=== PATIENT | male | born 1955 | race Caucasian/White ===

== ENCOUNTER → 2016-07-20 | Outpatient (CLI) | payer BC ==
--- NOTE | 2016-07-20 15:15 | US ---
EXAMINATION TYPE: US venous doppler duplex LE RT DATE OF EXAM: 07/20/2016 3:02 PM COMPARISON: NONE CLINICAL HISTORY: M79.669 Pain in lower right leg. SIDE PERFORMED: Right TECHNIQUE: The lower extremity deep venous system is examined utilizing real time linear array sonog felipe with graded compression, doppler sonography and color-flow sonography. VESSELS IMAGED: External Iliac Vein (EIV) Common Femoral Vein Deep Femoral Vein Greater Saphenous Vein * Femoral Vein Popliteal Vein Proximal Calf Veins (* superficial vessels) Right Leg: Positive for DVT. There is thrombus seen from prox pop vein through ptv's in the calf. Th e vessel has minimal flow and is non compressible. No popliteal fossa lesion is seen. IMPRESSION: THIS EXAMINATION IS POSITIVE FOR DVT EXTENDING FROM THE PROXIMAL POPLITEAL VEIN INTO THE PROXIMAL XOCHITL F VEINS.
== END ==
LOC: RADUSWWP 14:24
PROVIDERS: ATTEND Family Medicine
DX: I82.431 Acute embolism and thrombosis of right popliteal vein (principal)

== ENCOUNTER 2016-07-23 17:22 | Emergency (ER) | payer BC ==
[2016-07-23] MEDS ORDERED: ACETAMINOPHEN TAB 325 MG TAB PO STA (18:25)
[2016-07-23 18:44] LABS: Basophils # (A) 0.1 k/uL (0-0.2); Basophils % (A) 1 %; CH 30.7; CHCM 34.6; Eosinophils # (A) 0.1 k/uL (0-0.7); Eosinophils % (A) 2 %; HCT 45.6 % (39.0-53.0); HDW 2.73; HGB 15.4 gm/dL (13.0-17.5); Luc % (Auto) 1; Lymphocytes # (A) 1.4 k/uL (1.0-4.8); Lymphocytes % (A) 18 %; MCH 30.2 pg (25.0-35.0); MCHC 33.9 g/dL (31.0-37.0); MCV 89.2 fL (80.0-100.0); Mean Platelet Volume 6.9; Monocytes # (A) 0.5 k/uL (0-1.0); Monocytes % (A) 7 %; Neutrophils # (A) 5.4 k/uL (1.3-7.7); Neutrophils % (A) 71 %; RBC 5.11 m/uL (4.30-5.90); WBC 7.6 k/uL (3.8-10.6); WBC (Perox) 7.97
[2016-07-23 18:54] LABS: Anion Gap 11 mmol/L; Blood Urea Nitrogen 16 mg/dL (9-20); Calcium 9.3 mg/dL (8.4-10.2); Carbon Dioxide 25 mmol/L (22-30); Chloride 104 mmol/L (98-107); Glucose 87 mg/dL (74-99); Non-African American GFR(MDRD) >60 (>60 ml/min/1.73 sqM); Potassium 4.1 mmol/L (3.5-5.1); Sodium 140 mmol/L (137-145)
--- NOTE | 2016-07-23 18:55 | ED ---
General Adult HPI - General Chief complaint: Headache Stated complaint: headache,poss blood clot Time Seen by Provider: 07/23/16 18:03 Source: patient, family, RN notes reviewed Mode of arrival: ambulatory Limitations: no limitations - History of Present Illness Initial comments: 60-year-old male presenting for headache. Patient states the symptoms began about 3 days ago and are gradually worsening. States the headaches are intermittent and feels like they're present on the top of his head and frontal area. He does not have a history of recurrent headaches. Does state that he was diagnosed with a DVT this previous Saturday and started on Xarelto at that time. He also states over the past 2-3 days he's had development of a sore throat and feels at times like he is having difficulty swallowing. He has also been having intermittent chest pains over the past 3 days. He is also feeling associated fatigue. - Related Data Home Medications Medication Instructions Recorded Confirmed Rivaroxaban [Xarelto] 15 mg PO BID 07/23/16 07/23/16 Allergies Allergy/AdvReac Type Severity Reaction Status Date / Time No Known Allergies Allergy Verified 07/23/16 18:03 Review of Systems ROS Statement: Those systems with pertinent positive or pertinent negative responses have been documented in the HPI. ROS Other: All systems not noted in ROS Statement are negative. Past Medical History Past Medical History: Cancer Additional Past Medical History / Comment(s): hx skin cancer 2003, DVT 2016 History of Any Multi-Drug Resistant Organisms: None Reported Past Surgical History: Back Surgery, Cholecystectomy, Orthopedic Surgery Additional Past Surgical History / Comment(s): skin ca. removed 2003. RIGHT SHOULDER SURGERY 02/03/14. Past Anesthesia/Blood Transfusion Reactions: No Reported Reaction Past Psychological History: No Psychological Hx Reported Smoking Status: Never smoker Past Alcohol Use History: None Reported Past Drug Use History: None Reported - Past Family History Mother Family Medical History: Cancer Sister(s) Family Medical History: Cancer, Deep Vein Thrombosis (DVT) Brother(s) Family Medical History: Cancer, Deep Vein Thrombosis (DVT) General Exam - General Exam Comments Initial Comments: General: Awake and Alert. No acute distress. Does not appear acutely ill. Eyes: WILIAM, EOM intact. No nystagmus. No scleral icterus. HENT: Atraumatic, normocephalic. Mucous membranes moist. Trachea midline. Neck: The neck is supple, there is no tenderness or JVD. Cardiovascular: Regular rate and rhythm. No murmur, rub, or gallop is appreciated. Distal pulses intact. Respiratory: Lungs are clear to auscultation bilaterally. No wheezes, rales, rhonchi. No respiratory distress. Gastrointestinal: Soft, Nontender. No rebound or guarding. Non-distended. No masses or organomegaly noted. No CVA tenderness. Musculoskeletal: No tenderness. Normal ROM. No gross deformity. No strength deficits. Neurological: A&Ox3. CN II-XII grossly intact, There are no obvious motor or sensory deficits. Coordination appears grossly intact. Speech is normal. Skin: Skin is warm and dry and no rashes or lesions are noted. Psychiatric: Cooperative, appropriate mood & affect, normal judgment. Limitations: no limitations Course Vital Signs 07/23/16 07/23/16 07/23/16 17:51 18:33 21:27 Temperature 98.0 F Pulse Rate 68 62 69 Respiratory 20 16 18 Rate Blood Pressure 130/86 124/83 112/74 O2 Sat by Pulse 95 93 L 97 Oximetry EKG Findings - EKG Comments: EKG Findings:: EKG 18:55. Sinus rhythm. Rate 58. NH 202. QRS 98. QT/QTc 434 /426. Normal axis. No STEMI. Nonspecific EKG. Medical Decision Making - Medical Decision Making 60-year-old male presenting for multiple symptoms including headache and chest pain. Patient denies any active chest pain at this time. Physical exam is unremarkable without focal neurological deficits. His gait is normal and intact. Sinus headache is mild. He is given Tylenol for headache. Lab workup ordered. CT head and neck without acute process. Lab work is grossly unremarkable. On reevaluation patient states he is feeling improved. Updated patient and on results and imaging. Discussed concern for overall symptoms but reassuring workup today. Discussed lower suspicion for meningitis of severe intracranial process at this time. Patient was offered lumbar puncture but declines at this time. I believe this is appropriate given that he is feeling improved after medications. Discussed uncertain etiology of his symptoms at this time. Discussed his intermittent chest pain. Heart score is 2, low risk for acute cardiac event. Discussed benefit of further cardiac evaluation in the outpatient setting. Offered admission for further evaluation versus outpatient treatment. Patient would prefer further outpatient follow-up. Discussed continuing symptomatically management with [id number] medications. Discussed close follow-up with PCP. Discussed this could be possible side effects of his Xarelto. Discussed concerning signs symptoms for immediate return to the ED. Patient and are agreeable to plan a discharge home. - Lab Data Result diagrams: 07/23/16 18:35 07/23/16 18:35 Lab Results 07/23/16 07/23/16 07/23/16 Range/Units 18:35 18:35 18:35 WBC 7.6 (3.8-10.6) k/uL RBC 5.11 (4.30-5.90) m/uL Hgb 15.4 (13.0-17.5) gm/dL Hct 45.6 (39.0-53.0) % MCV 89.2 (80.0-100.0) fL MCH 30.2 (25.0-35.0) pg MCHC 33.9 (31.0-37.0) g/dL RDW 14.0 (11.5-15.5) % Plt Count 228 (150-450) k/uL Neutrophils % 71 % Lymphocytes % 18 % Monocytes % 7 % Eosinophils % 2 % Basophils % 1 % Neutrophils # 5.4 (1.3-7.7) k/uL Lymphocytes # 1.4 (1.0-4.8) k/uL Monocytes # 0.5 (0-1.0) k/uL Eosinophils # 0.1 (0-0.7) k/uL Basophils # 0.1 (0-0.2) k/uL PT 10.3 (9.0-12.0) sec INR 1.0 (<1.1) APTT 25.1 (22.0-30.0) sec Sodium 140 (137-145) mmol/L Potassium 4.1 (3.5-5.1) mmol/L Chloride 104 (98-107) mmol/L Carbon Dioxide 25 (22-30) mmol/L Anion Gap 11 mmol/L BUN 16 (9-20) mg/dL Creatinine 0.95 (0.66-1.25) mg/dL Est GFR (MDRD) Af Amer >60 (>60 ml/min/1.73 sqM) Est GFR (MDRD) Non-Af >60 (>60 ml/min/1.73 sqM) Glucose 87 (74-99) mg/dL Calcium 9.3 (8.4-10.2) mg/dL Troponin I (0.000-0.034) ng/mL 07/23/16 Range/Units 18:35 WBC (3.8-10.6) k/uL RBC (4.30-5.90) m/uL Hgb (13.0-17.5) gm/dL Hct (39.0-53.0) % MCV (80.0-100.0) fL MCH (25.0-35.0) pg MCHC (31.0-37.0) g/dL RDW (11.5-15.5) % Plt Count (150-450) k/uL Neutrophils % % Lymphocytes % % Monocytes % % Eosinophils % % Basophils % % Neutrophils # (1.3-7.7) k/uL Lymphocytes # (1.0-4.8) k/uL Monocytes # (0-1.0) k/uL Eosinophils # (0-0.7) k/uL Basophils # (0-0.2) k/uL PT (9.0-12.0) sec INR (<1.1) APTT (22.0-30.0) sec Sodium (137-145) mmol/L Potassium (3.5-5.1) mmol/L Chloride (98-107) mmol/L Carbon Dioxide (22-30) mmol/L Anion Gap mmol/L BUN (9-20) mg/dL Creatinine (0.66-1.25) mg/dL Est GFR (MDRD) Af Amer (>60 ml/min/1.73 sqM) Est GFR (MDRD) Non-Af (>60 ml/min/1.73 sqM) Glucose (74-99) mg/dL Calcium (8.4-10.2) mg/dL Troponin I <0.012 (0.000-0.034) ng/mL - EKG Data -: EKG Interpreted by Mo EKG shows normal: sinus rhythm Rate: normal - Radiology Data Radiology results: report reviewed, image reviewed Disposition Clinical Impression: Nonintractable headache, Nonspecific chest pain Disposition: HOME SELF-CARE Condition: Stable Instructions: Acute Headache (ED), Chest Pain (ED) Additional Instructions: You may take Tylenol for headache or pain Please follow up with your primary doctor for reevaluation and further cardiac workup. Please discuss outpatient stress testing. Referrals: Irma Otto III, MD [Primary Care Provider] - 1-2 days Time of Disposition: 21:14
[2016-07-23 18:58] LABS: Partial Thromboplastin Time 25.1 sec (22.0-30.0); Prothrombin Time 10.3 sec (9.0-12.0)
--- NOTE | 2016-07-23 19:25 | CT ---
EXAMINATION TYPE: CT brain jerod wo con DATE OF EXAM: 07/23/2016 7:13 PM COMPARISON: NONE HISTORY: Headache with neck pain. No known injury CT DLP: 1528.2 mGycm Automated exposure control for dose reduction was used. TECHNIQUE: CT scan of the head and cervical spine are performed without contrast. FINDINGS: There is cerebral cortical atrophy. There is no mass effect nor midline shift. There is n o sign of intracranial hemorrhage. The calvarium is intact. The cervical vertebra have normal alignment. There is mild narrowing at C5-6 C6-7 disc spaces with sp urring. Facet joints are intact. There is no evidence of a fracture. The skull base appears intact. IMPRESSION: Negative CT scan of the cervical spine. Mild spondylotic changes. Mild cerebral cortical atrophy. No acute intracranial abnormality.
[2016-07-23] MEDS ORDERED: diphenhydrAMINE 50 MG/ML 1 ML VIAL IVP STA (20:06)
[2016-07-23] MEDS ORDERED: PROMETHAZINE INJ 25 MG in SODIUM CHLORIDE 0.9% 50 ML IVPB STA (20:06)
[2016-07-23] MEDS ORDERED: KETOROLAC 30 MG/ML 1 ML VIAL IVP STA (20:06)
[2016-07-23 21:29] VITALS: BP 112/74; PULSE 69; RESP 18; TEMP 98
== END 2016-07-23 21:29 | disposition home or self-care (01) ==
LOC: EC 17:22
DX: R51 Headache (principal); R07.9 Chest pain, unspecified; R53.83 Other fatigue; Z85.828 Personal history of other malignant neoplasm of skin; Z79.899 Other long term (current) drug therapy
CPT/HCPCS: 36415; 93005; 80048; 84484; 85025; 85610; 85730; 72125; 70450; 99284; 96365; 96375 ×2; J1200; J2550; J1885

== ENCOUNTER 2017-07-23 13:40 | Emergency (ER) | payer BC ==
[2017-07-23] MEDS ORDERED: SODIUM CHLORIDE 0.9% 1,000 ML IV STA (14:10)
--- NOTE | 2017-07-23 14:36 | ED ---
General Adult HPI - General Chief complaint: Abdominal Pain Stated complaint: abd pain Time Seen by Provider: 07/23/17 14:00 Source: patient, RN notes reviewed Mode of arrival: ambulatory Limitations: no limitations - History of Present Illness Initial comments: Patient 61-year-old male presenting to the emergency room today with chief complaint of abdominal pain left lower quadrant and bloody bowel movements. Patient states that he's had some dull pain over the last few months and has seen blood in the stool at times over the last month and a half. He states he did go to the family doctor advised come here to the emergency room further evaluation CAT scan of his abdomen. Patient states critical thoughts times does not need any pain medication. States the bowel movements have been dark and bright colors both on the paper and in the toilet. Patient states never had similar symptoms in the past. He denies any other complaints or symptoms at this time. Patient denies any recent fever, chills, shortness of breath, chest pain, nausea or vomiting, numbness or tingling, dysuria or hematuria, constipation, headaches or visual changes, or any other complaints. - Related Data Previous Rx's Medication Instructions Recorded Dicyclomine [Bentyl] 20 mg PO QID #20 tablet 07/23/17 Omeprazole 20 mg PO DAILY #20 capsule. 07/23/17 Allergies Allergy/AdvReac Type Severity Reaction Status Date / Time No Known Allergies Allergy Verified 07/23/17 14:33 Review of Systems ROS Statement: Those systems with pertinent positive or pertinent negative responses have been documented in the HPI. ROS Other: All systems not noted in ROS Statement are negative. Past Medical History Past Medical History: Cancer Additional Past Medical History / Comment(s): hx skin cancer 2003, DVT 2016 History of Any Multi-Drug Resistant Organisms: None Reported Past Surgical History: Back Surgery, Cholecystectomy, Orthopedic Surgery Additional Past Surgical History / Comment(s): skin ca. removed 2003. RIGHT SHOULDER SURGERY 02/03/14. Past Anesthesia/Blood Transfusion Reactions: No Reported Reaction Past Psychological History: No Psychological Hx Reported Smoking Status: Never smoker Past Alcohol Use History: None Reported Past Drug Use History: None Reported - Past Family History Mother Family Medical History: Cancer Sister(s) Family Medical History: Cancer, Deep Vein Thrombosis (DVT) Brother(s) Family Medical History: Cancer, Deep Vein Thrombosis (DVT) General Exam - General Exam Comments Initial Comments: General: The patient is awake and alert, in no distress, and does not appear acutely ill. Eye: Pupils are equal, round and reactive to light, extra-ocular movements are intact. No nystagmus. There is normal conjunctiva bilaterally. No signs of icterus. Ears, nose, mouth and throat: There are moist mucous membranes and no oral lesions. Neck: The neck is supple, there is no tenderness or JVD. Cardiovascular: There is a regular rate and rhythm. No murmur, rub or gallop is appreciated. Respiratory: Lungs are clear to auscultation, respirations are non-labored, breath sounds are equal. No wheezes, stridor, rales, or rhonchi. Gastrointestinal: Abdomen soft on palpation. Patient does have tenderness to left lower quadrant. No rebound tenderness. No guarding. Musculoskeletal: Normal ROM, no tenderness. Strength 5/5. Sensation intact. Pulses equal bilaterally 2+. Neurological: A&O x 3. CN II-XII intact, There are no obvious motor or sensory deficits. Coordination appears grossly intact. Speech is normal. Skin: Skin is warm and dry and no rashes or lesions are noted. Psychiatric: Cooperative, appropriate mood & affect, normal judgment. : Normal rectal tone. No bright red blood per rectum. Limitations: no limitations Course Vital Signs 07/23/17 07/23/17 13:54 15:44 Temperature 97.6 F Pulse Rate 62 59 L Respiratory 18 16 Rate Blood Pressure 131/79 113/72 O2 Sat by Pulse 97 97 Oximetry Medical Decision Making - Medical Decision Making Patient reexamined at this time shows no signs of distress. Patient's labs been reviewed. Hemoglobin stable. Occult positive. Patient's CT of the abdomen shows enteritis. Results were discussed with the patient. At this time vitals are stable. Well. Patient states like to try to follow-up outpatient. Will be given information for GI and surgery advised FAMILY physician. Will be given omeprazole and Bentyl for symptoms. Advised return if any symptoms increase or worsen. - Lab Data Result diagrams: 07/23/17 14:25 07/23/17 14:25 Lab Results 07/23/17 07/23/17 07/23/17 Range/Units 14:25 14:25 14:25 WBC 7.0 (3.8-10.6) k/uL RBC 5.18 (4.30-5.90) m/uL Hgb 14.6 (13.0-17.5) gm/dL Hct 44.3 (39.0-53.0) % MCV 85.5 (80.0-100.0) fL MCH 28.1 (25.0-35.0) pg MCHC 32.9 (31.0-37.0) g/dL RDW 13.8 (11.5-15.5) % Plt Count 261 (150-450) k/uL Neutrophils % 75 % Lymphocytes % 16 % Monocytes % 6 % Eosinophils % 1 % Basophils % 1 % Neutrophils # 5.3 (1.3-7.7) k/uL Lymphocytes # 1.2 (1.0-4.8) k/uL Monocytes # 0.4 (0-1.0) k/uL Eosinophils # 0.1 (0-0.7) k/uL Basophils # 0.1 (0-0.2) k/uL PT (9.0-12.0) sec INR (<1.2) APTT (22.0-30.0) sec Sodium 144 (137-145) mmol/L Potassium 4.7 (3.5-5.1) mmol/L Chloride 106 (98-107) mmol/L Carbon Dioxide 23 (22-30) mmol/L Anion Gap 15 mmol/L BUN 18 (9-20) mg/dL Creatinine 0.97 (0.66-1.25) mg/dL Est GFR (CKD-EPI)AfAm >90 (>60 ml/min/1.73 sqM) Est GFR (CKD-EPI)NonAf 85 (>60 ml/min/1.73 sqM) Glucose 84 (74-99) mg/dL Plasma Lactic Acid Ranjith 0.8 (0.7-2.0) mmol/L Calcium 9.4 (8.4-10.2) mg/dL Total Bilirubin 0.8 (0.2-1.3) mg/dL AST 58 (17-59) U/L ALT 51 (21-72) U/L Alkaline Phosphatase 39 (38-126) U/L Total Protein 7.5 (6.3-8.2) g/dL Albumin 4.4 (3.5-5.0) g/dL Stool Occult Blood (Negative) 07/23/17 07/23/17 Range/Units 14:25 14:25 WBC (3.8-10.6) k/uL RBC (4.30-5.90) m/uL Hgb (13.0-17.5) gm/dL Hct (39.0-53.0) % MCV (80.0-100.0) fL MCH (25.0-35.0) pg MCHC (31.0-37.0) g/dL RDW (11.5-15.5) % Plt Count (150-450) k/uL Neutrophils % % Lymphocytes % % Monocytes % % Eosinophils % % Basophils % % Neutrophils # (1.3-7.7) k/uL Lymphocytes # (1.0-4.8) k/uL Monocytes # (0-1.0) k/uL Eosinophils # (0-0.7) k/uL Basophils # (0-0.2) k/uL PT 10.5 (9.0-12.0) sec INR 1.1 (<1.2) APTT 21.3 L (22.0-30.0) sec Sodium (137-145) mmol/L Potassium (3.5-5.1) mmol/L Chloride (98-107) mmol/L Carbon Dioxide (22-30) mmol/L Anion Gap mmol/L BUN (9-20) mg/dL Creatinine (0.66-1.25) mg/dL Est GFR (CKD-EPI)AfAm (>60 ml/min/1.73 sqM) Est GFR (CKD-EPI)NonAf (>60 ml/min/1.73 sqM) Glucose (74-99) mg/dL Plasma Lactic Acid Ranjith (0.7-2.0) mmol/L Calcium (8.4-10.2) mg/dL Total Bilirubin (0.2-1.3) mg/dL AST (17-59) U/L ALT (21-72) U/L Alkaline Phosphatase (38-126) U/L Total Protein (6.3-8.2) g/dL Albumin (3.5-5.0) g/dL Stool Occult Blood Positive (Negative) Disposition Clinical Impression: Blood in stool Disposition: HOME SELF-CARE Condition: Good Instructions: Gastrointestinal Bleeding (ED) Additional Instructions: Please use medication that was sent to your pharmacy as discussed. Please follow-up with family doctor in the next 2 days of symptoms have not improved. Please return to emergency room if the symptoms increase or worsen or for any other concerns. Prescriptions: Dicyclomine [Bentyl] 20 mg PO QID #20 tablet Omeprazole 20 mg PO DAILY #20 capsule.dr Is patient prescribed a controlled substance at discharge?: No Referrals: Irma Otto III, MD [Primary Care Provider] - 1-2 days Adán Scherer MD [STAFF PHYSICIAN] - 1-2 days Time of Disposition: 17:35
[2017-07-23 14:45] LABS: Basophils # (A) 0.1 k/uL (0-0.2); Basophils % (A) 1 %; Eosinophils # (A) 0.1 k/uL (0-0.7); Eosinophils % (A) 1 %; HCT 44.3 % (39.0-53.0); HGB 14.6 gm/dL (13.0-17.5); Lymphocytes # (A) 1.2 k/uL (1.0-4.8); Lymphocytes % (A) 16 %; MCH 28.1 pg (25.0-35.0); MCHC 32.9 g/dL (31.0-37.0); MCV 85.5 fL (80.0-100.0); Mean Platelet Volume 7.1; Monocytes # (A) 0.4 k/uL (0-1.0); Monocytes % (A) 6 %; Neutrophils # (A) 5.3 k/uL (1.3-7.7); Neutrophils % (A) 75 %; Platelet Count 261 k/uL (150-450); RBC 5.18 m/uL (4.30-5.90); RDW 13.8 % (11.5-15.5)
[2017-07-23 15:00] LABS: ALT 51 U/L (21-72); AST 58 U/L (17-59); Albumin 4.4 g/dL (3.5-5.0); Alkaline Phosphatase 39 U/L (38-126); Anion Gap 15 mmol/L; Blood Urea Nitrogen 18 mg/dL (9-20); Calcium 9.4 mg/dL (8.4-10.2); Carbon Dioxide 23 mmol/L (22-30); Chloride 106 mmol/L (98-107); Glucose 84 mg/dL (74-99); Potassium 4.7 mmol/L (3.5-5.1); Sodium 144 mmol/L (137-145); Total Bilirubin 0.8 mg/dL (0.2-1.3); Total Protein 7.5 g/dL (6.3-8.2)
[2017-07-23 15:04] LABS: INR 1.1 (<1.2); Prothrombin Time 10.5 sec (9.0-12.0)
[2017-07-23 15:09] LABS: Partial Thromboplastin Time 21.3 sec (22.0-30.0)
[2017-07-23] MEDS ORDERED: RX INFO: IV CONTRAST WAS GIVEN 1 EACH MISC MISCELLANE PRN (15:27)
[2017-07-23 15:44] VITALS: RESP 16
[2017-07-23] MEDS ORDERED: MORPHINE SULFATE 4MG/4ML SYRG IVP STA (15:45)
--- NOTE | 2017-07-23 17:09 | CT ---
EXAMINATION TYPE: CT abdomen pelvis w con DATE OF EXAM: 07/23/2017 COMPARISON: NONE HISTORY: Left lower quadrant pain and bloody stools x [address] DLP: 1450.2 mGycm Automated exposure control for dose reduction was used. TECHNIQUE: Helical acquisition of images from the lung bases through the pelvis have been completed. CONTRAST: Performed without Oral Contrast and with IV Contrast, patient injected with 100 mL of Isovue M300. FINDINGS: LUNG BASES: No significant abnormality is appreciated. AORTA: No significant abnormality is appreciated. LIVER/GB: Multiple cystic foci are scattered within the liver, largest within the left lobe measures 3.4 cm. Patient is post cholecystectomy.. PANCREAS: No significant abnormality is seen. SPLEEN: No significant abnormality is seen. ADRENALS: No significant abnormality is seen. KIDNEYS: No significant abnormality is seen. REPRODUCTIVE ORGANS: No significant abnormality is seen BOWEL: Fluid-filled loops of small bowel are present. The appendix is normal. Small umbilical hernia contains fat. Colon is not distended distally, difficult to exclude a mucosal lesion. FREE AIR: No Free Air visible. ASCITES: None visible. PELVIC ADENOPATHY: None visualized. RETROPERITONEAL ADENOPATHY: No Retroperitoneal Adenopathy visible. URINARY BLADDER: No significant abnormality is seen. OSSEOUS STRUCTURES: Postop changes are noted status post unilateral posterior fusion at L3-L5. Shamar ectomy present at L4 and L3. IMPRESSION: FINDINGS COMPATIBLE WITH ENTERITIS. FOLLOW-UP INDICATED.
[2017-07-23 17:54] VITALS: BP 109/70; PULSE 58; TEMP 98
== END 2017-07-23 17:45 | disposition home or self-care (01) ==
LOC: EC 13:40
DX: K92.1 Melena (principal); R10.32 Left lower quadrant pain; Z90.49 Acquired absence of other specified parts of digestive tract; Z85.828 Personal history of other malignant neoplasm of skin
CPT/HCPCS: 36415; 80053; 83605; 85025; 85610; 85730; 82272; 87040; 74177; 99284; Q9967; J2270

== ENCOUNTER 2017-08-08 11:31 | Day surgery (SDC) | payer BC ==
[2017-08-05 15:46] VITALS: BMI 28.2
[~2017-08-08 11:31] MED LIST: LACTATED RINGERS 1,000 ML IV SCH
[2017-08-08] MEDS ORDERED: LIDOCAINE 1% 20 ML VIAL (10MG/ML) FOR IV START INTRADERMA ONE (11:57)
[2017-08-08 12:00] VITALS: TEMP 97.9
[2017-08-08] MEDS ORDERED: PROPOFOL 10 MG/ML 20 ML VIAL IV ONE (13:32)
[2017-08-08] MEDS ORDERED: LIDOCAINE 1% INJ 10MG/ML (20 ML MDV) ONE (13:32)
[2017-08-08 14:13] VITALS: RESP 18
--- NOTE | 2017-08-08 14:16 | P.PCN ---
Date of Procedure: 08/08/17 Procedure(s) Performed: Procedure: Total colonoscopy. Preoperative diagnosis: Rectal bleeding. Postoperative diagnosis: Posterior anal fissure not bleeding at the time of this exam, otherwise, exam to the cecum within normal limits. Preparation: HalfLytely prep. Sedation: Was provided by anesthesia. Brief clinical history: The patient is a 61-year-old male who has been experiencing intermittent rectal bleeding over the last 2 months or so. He has been having rectal pain as well. The patient had no prior colonoscopy. He has no other abdominal symptoms or change in bowel habits. No family history of colon cancer or inflammatory bowel disease. Procedure: With the patient on his left lateral decubitus position and after informed consent and adequate sedation, the perianal area was inspected and it showed a posterior anal fissure with evidence of slight fresh bleeding. There were no fistulas. There were no masses felt on digital rectal examination. The Olympus CFQ 160L video colonoscope was then inserted in the rectum in the usual fashion and advanced to the cecum. The mucosa appeared healthy. No polyps or tumors were seen or any obvious diverticular disease or other pathology. I retroflexed the endoscope in the rectum before the endoscope was withdrawn. The patient tolerated the procedure well. Plan: The patient was reassured. Discussed dietary measures and local care of his fissure. Further plans can be made based on his course. He will follow up with you as planned.
[2017-08-08 14:33] VITALS: BP 110/74; PULSE 61
== END 2017-08-08 14:47 | disposition home or self-care (01) ==
LOC: ORWHC2ENDO 11:31
DX: K60.2 Anal fissure, unspecified (principal); Z86.718 Personal history of other venous thrombosis and embolism; K62.5 Hemorrhage of anus and rectum; Z79.1 Long term (current) use of non-steroidal anti-inflammatories (NSAID)
CPT/HCPCS: 45378; J2001; J2704

== ENCOUNTER → 2017-10-31 | Outpatient (CLI) | payer BC ==
--- NOTE | 2017-10-31 09:38 | FL ---
EXAMINATION TYPE: FL small bowel follow through DATE OF EXAM: 10/31/2017 CLINICAL HISTORY: Lower abd pain, bloody stools, constipation and diarrhea. TECHNIQUE: A single contrast small bowel follow through is performed utilizing barium. 32sec fluor o time was 8 fluoroscopic images saved. COMPARISON: None FINDINGS: Thread Laster image of the abdomen demonstrates a moderate amount retained colonic stool. No dilat ed large or small bowel. There is also a levoscoliotic curvature, moderate multilevel degenerative ch kayla, and postsurgical changes of the and thoracolumbar spine. Cholecystectomy clips are noted within the right upper quadrant. The small bowel study shows normal transit to the colon in less than 20 minutes. This is indicative o f decreased transit time. There is a normal mucosal fold pattern throughout the small bowel. There i s no evidence of any stricture or filling defect noted. The terminal ileum is spotted and appears un remarkable. IMPRESSION: 1. Abnormal motility of the small bowel with decreased transit time. This finding is nonspecific and can be seen in enteritis and diarrhea. 2. No evidence of stricture or abnormal morphology of the terminal ileum. There is a normal small bow el mucosal fold pattern. At there is further concern for acute inflammatory process CT enterography o r MRI enterography could be performed.
== END | disposition home or self-care (01) ==
LOC: RADFLMAIN 07:48
DX: R93.3 Abnormal findings on diagnostic imaging of other parts of digestive tract (principal); R19.4 Change in bowel habit
CPT/HCPCS: 74250

== ENCOUNTER → 2018-01-14 | Outpatient (CLI) | payer BC ==
[~2018-01-14] MED LIST changes: +COSYNTROPIN 0.25 MG VIAL IVP ONE; -LACTATED RINGERS 1,000 ML IV SCH
[2018-01-14 08:54] VITALS: BP 120/76; PULSE 53; RESP 16; TEMP 97.6
[2018-01-14 09:58] LABS: PSA Annual Screen 1.46 ng/mL (0.00-4.00)
== END | disposition home or self-care (01) ==
LOC: PROCWHC3 08:10
PROVIDERS: ATTEND Family Medicine
DX: Z00.01 Encounter for general adult medical examination with abnormal findings (principal); E87.5 Hyperkalemia; Z12.5 Encounter for screening for malignant neoplasm of prostate
CPT/HCPCS: 80061; 82533; 82024; 96374; G0103; J0834

== ENCOUNTER → 2018-04-14 | Outpatient (CLI) | payer BC ==
[~2018-04-14] MED LIST changes: +SODIUM CHLORIDE 0.9% 500 ML 500 ML in EMPTY BAG 1 BAG IV PRN
[2018-04-14 10:15] VITALS: BP 129/84; PULSE 58; RESP 18; TEMP 97.4
[2018-04-14 12:19] LABS: Albumin 4.4 g/dL (3.5-5.0); Calcium 9.4 mg/dL (8.4-10.2); Total Bilirubin 0.6 mg/dL (0.2-1.3); Total Protein 7.3 g/dL (6.3-8.2)
== END | disposition home or self-care (01) ==
LOC: PROCWHC3 09:49
PROVIDERS: ATTEND Internal Medicine
DX: E27.40 Unspecified adrenocortical insufficiency (principal)
CPT/HCPCS: 80053; 82533; 82024; 96374; J0834

== ENCOUNTER 2018-06-29 06:17 | Observation (INO) | payer BC ==
[2018-06-29 06:52] LABS: Basophils # (A) 0.1 k/uL (0-0.2); Basophils % (A) 0 %; Eosinophils # (A) 0.2 k/uL (0-0.7); Eosinophils % (A) 1 %; HCT 49.8 % (39.0-53.0); Lymphocytes # (A) 1.1 k/uL (1.0-4.8); Lymphocytes % (A) 8 %; MCH 28.4 pg (25.0-35.0); MCHC 32.1 g/dL (31.0-37.0); MCV 88.7 fL (80.0-100.0); Mean Platelet Volume 7.8; Monocytes # (A) 0.8 k/uL (0-1.0); Monocytes % (A) 6 %; Neutrophils # (A) 10.9 k/uL (1.3-7.7); Neutrophils % (A) 83 %; Platelet Count 164 k/uL (150-450); RBC 5.61 m/uL (4.30-5.90); RDW 13.7 % (11.5-15.5); WBC 13.2 k/uL (3.8-10.6)
[2018-06-29 06:59] LABS: Partial Thromboplastin Time 23.4 sec (22.0-30.0); Prothrombin Time 10.5 sec (9.0-12.0)
[2018-06-29 07:02] LABS: Albumin 4.3 g/dL (3.5-5.0); Calcium 9.6 mg/dL (8.4-10.2); Potassium 4.7 mmol/L (3.5-5.1); Total Bilirubin 1.3 mg/dL (0.2-1.3); Total Protein 7.2 g/dL (6.3-8.2)
[2018-06-29] MEDS ORDERED: MORPHINE SULFATE 4 MG/ML SYRINGE IVP STA (07:03)
--- NOTE | 2018-06-29 07:03 | ED ---
Abdominal Pain HPI <Benson Yang - Last Filed: 06/29/18 08:32> - General Source: patient Mode of arrival: wheelchair Limitations: no limitations <Funmilayo Sands - Last Filed: 06/30/18 01:50> - General Chief Complaint: Abdominal Pain Stated Complaint: SOB/Abdominal Pain Time Seen by Provider: 06/29/18 06:31 - History of Present Illness Initial Comments: Please a 62-year-old male with a history of chronic abdominal pain for which he is followed closely by gastroenterology he presents today for evaluation of right-sided upper flank and lower lung pain. Reports the pain began approximately 2 days ago but was very mild he reports this morning he woke up and he had a sudden onset of severe worsening of his pain he became diaphoretic lightheaded reports that his vision went black and he laid himself on the ground. He believes he did lose consciousness. His reports that she found him laying on the ground that he was pale and sweaty and that they had to drive the hospital with the windows down due to him being so sweaty. Patient reports he's never spends anything like this in the past. Patient reports his pain is primarily in the right side. He reports that pain is worse with deep inspiration he feels like he can't catch a deep breath. He doesn't have any palpitations or exertional chest pain. Patient does have a history of lower extremity DVTs which they believe were provoked by a long distance travel. He reports he was on anticoagulation until March 2018 at which time his anticoagulation was discontinued. (Funmilayo Sands) - Related Data Home Medications Medication Instructions Recorded Confirmed Ibuprofen [Motrin Ib] 400 mg PO Q6H PRN 06/29/18 06/29/18 Allergies Allergy/AdvReac Type Severity Reaction Status Date / Time No Known Allergies Allergy Verified 06/29/18 07:53 Review of Systems ROS Other: All systems not noted in ROS Statement are negative. <Benson Yang - Last Filed: 06/29/18 08:32> ROS Other: All systems not noted in ROS Statement are negative. <Funmilayo Sands - Last Filed: 06/30/18 01:50> ROS Statement: Those systems with pertinent positive or pertinent negative responses have been documented in the HPI. Past Medical History Past Medical History: Cancer Additional Past Medical History / Comment(s): hx skin cancer 2003, DVT right leg 2016 (states he was on xarelto - last dose was Mar , states last ultrasound showed clot still there., 4 back surgeries with Chronic back pain., states having abd pain and rectal bleeding for 2 months. History of Any Multi-Drug Resistant Organisms: None Reported Past Surgical History: Back Surgery, Cholecystectomy, Orthopedic Surgery, Tonsillectomy Additional Past Surgical History / Comment(s): SKIN CANCER, . RIGHT SHOULDER SURGERY x2, BILATERAL KNEE ARTHROSCOPY. Past Anesthesia/Blood Transfusion Reactions: No Reported Reaction Past Psychological History: No Psychological Hx Reported Smoking Status: Never smoker - Past Family History Father Family Medical History: Cancer Additional Family Medical History / Comment(s): PROSTATE CANCER Mother Family Medical History: Cancer Additional Family Medical History / Comment(s): OVARIAN CANCER Sister(s) Family Medical History: Cancer, Deep Vein Thrombosis (DVT) Additional Family Medical History / Comment(s): OVARIAN CANCER, BREAST CANCER Brother(s) Family Medical History: Cancer, Deep Vein Thrombosis (DVT), Pulmonary Embolus Additional Family Medical History / Comment(s): LEUKEMIA <Funmilayo Sands P - Last Filed: 06/30/18 01:50> General Exam Limitations: no limitations <Funmilayo Sands P - Last Filed: 06/30/18 01:50> - General Exam Comments Initial Comments: Physical Exam GENERAL: Patient is well-developed and well-nourished. Patient is nontoxic and well- hydrated and is in no distress. HENT: Normocephalic, Atraumatic. EYES: PERRL, EOMI PULMONARY: Unlabored respirations. No audible rales rhonchi or wheezing was noted. CARDIOVASCULAR: There is a regular rate and rhythm without any murmurs gallops or rubs. DP and PT pulses are present and equal bilaterally All extremities are warm and well perfused ABDOMEN: Soft and nontender with normal bowel sounds. Pulsatile mass SKIN: Skin is clear with no lesions or rashes and otherwise unremarkable. Diaphoretic : Deferred NEUROLOGIC: Patient is alert and oriented x3. Moving all extremities spontaneously MUSCULOSKELETAL: Normal extremities with adequate strength and full range of motion. No lower extremity swelling or edema. No calf tenderness. PSYCHIATRIC: Normal psychiatric evaluation. Limitations: no limitations (Funmilayo Sands) Course Vital Signs 06/29/18 06/29/18 06/29/18 06:19 07:30 08:53 Temperature 97.8 F Pulse Rate 67 63 65 Respiratory 20 18 18 Rate Blood Pressure 112/73 108/73 104/85 O2 Sat by Pulse 95 96 96 Oximetry 06/29/18 09:47 Temperature 98.3 F Pulse Rate 66 Respiratory 18 Rate Blood Pressure 103/73 O2 Sat by Pulse 98 Oximetry Medical Decision Making - Lab Data Result diagrams: 06/29/18 06:31 06/29/18 06:31 <Benson Yang - Last Filed: 06/29/18 08:32> - Lab Data Result diagrams: 06/29/18 06:31 06/29/18 06:31 - EKG Data -: EKG Interpreted by Me <Funmilayo Sands - Last Filed: 06/30/18 01:50> - Medical Decision Making Patient care was signed out to me by previous shift physician, Dr. Sands. Briefly, patient is a 60-year-old male with history of chronic abdominal pain. He's been having pleuritic right-sided chest pain and right-sided abdominal pain. Patient had a leukocytosis of 13.2, rest of laboratory evaluation was unremarkable. Plan at sign out was to follow-up with CT imaging to determine appropriate disposition. CT showed acute appendicitis. Patient was reevaluated at bedside. Abdominal exam was suggestive of rebound tenderness, Rovsing sign. Clinical presentation and imaging studies are consistent with acute appendicitis . Patient be admitted to general surgery. Started on Zosyn. Patient case discussed with Dr. villa who is willing to accept admission. (Benson Yang) Patient was seen and evaluated immediately on arrival Patient is diaphoretic and appears uncomfortable however. Unknown etiology of this pain. Patient reports he's had mild pain for a couple of days but is having significant worsening with diaphoresis and syncope today Given the patient's history there is concern for pulmonary embolism versus dissection Labs and imaging were ordered Labs with mild leukocytosis (Funmilayo Sands) - Lab Data Lab Results 06/29/18 06/29/18 06/29/18 Range/Units 06:31 06:31 06:31 WBC 13.2 H (3.8-10.6) k/uL RBC 5.61 (4.30-5.90) m/uL Hgb 16.0 (13.0-17.5) gm/dL Hct 49.8 (39.0-53.0) % MCV 88.7 (80.0-100.0) fL MCH 28.4 (25.0-35.0) pg MCHC 32.1 (31.0-37.0) g/dL RDW 13.7 (11.5-15.5) % Plt Count 164 (150-450) k/uL Neutrophils % 83 % Lymphocytes % 8 % Monocytes % 6 % Eosinophils % 1 % Basophils % 0 % Neutrophils # 10.9 H (1.3-7.7) k/uL Lymphocytes # 1.1 (1.0-4.8) k/uL Monocytes # 0.8 (0-1.0) k/uL Eosinophils # 0.2 (0-0.7) k/uL Basophils # 0.1 (0-0.2) k/uL PT 10.5 (9.0-12.0) sec INR 1.0 (<1.2) APTT 23.4 (22.0-30.0) sec Sodium 140 (137-145) mmol/L Potassium 4.7 (3.5-5.1) mmol/L Chloride 109 H (98-107) mmol/L Carbon Dioxide 22 (22-30) mmol/L Anion Gap 9 mmol/L BUN 15 (9-20) mg/dL Creatinine 1.04 (0.66-1.25) mg/dL Est GFR (CKD-EPI)AfAm 89 (>60 ml/min/1.73 sqM) Est GFR (CKD-EPI)NonAf 77 (>60 ml/min/1.73 sqM) Glucose 103 H (74-99) mg/dL Calcium 9.6 (8.4-10.2) mg/dL Total Bilirubin 1.3 (0.2-1.3) mg/dL AST 44 (17-59) U/L ALT 29 (21-72) U/L Alkaline Phosphatase 45 (38-126) U/L Troponin I (0.000-0.034) ng/mL Total Protein 7.2 (6.3-8.2) g/dL Albumin 4.3 (3.5-5.0) g/dL Amylase 45 (30-110) U/L Lipase 93 (23-300) U/L 06/29/18 Range/Units 06:31 WBC (3.8-10.6) k/uL RBC (4.30-5.90) m/uL Hgb (13.0-17.5) gm/dL Hct (39.0-53.0) % MCV (80.0-100.0) fL MCH (25.0-35.0) pg MCHC (31.0-37.0) g/dL RDW (11.5-15.5) % Plt Count (150-450) k/uL Neutrophils % % Lymphocytes % % Monocytes % % Eosinophils % % Basophils % % Neutrophils # (1.3-7.7) k/uL Lymphocytes # (1.0-4.8) k/uL Monocytes # (0-1.0) k/uL Eosinophils # (0-0.7) k/uL Basophils # (0-0.2) k/uL PT (9.0-12.0) sec INR (<1.2) APTT (22.0-30.0) sec Sodium (137-145) mmol/L Potassium (3.5-5.1) mmol/L Chloride (98-107) mmol/L Carbon Dioxide (22-30) mmol/L Anion Gap mmol/L BUN (9-20) mg/dL Creatinine (0.66-1.25) mg/dL Est GFR (CKD-EPI)AfAm (>60 ml/min/1.73 sqM) Est GFR (CKD-EPI)NonAf (>60 ml/min/1.73 sqM) Glucose (74-99) mg/dL Calcium (8.4-10.2) mg/dL Total Bilirubin (0.2-1.3) mg/dL AST (17-59) U/L ALT (21-72) U/L Alkaline Phosphatase (38-126) U/L Troponin I <0.012 (0.000-0.034) ng/mL Total Protein (6.3-8.2) g/dL Albumin (3.5-5.0) g/dL Amylase (30-110) U/L Lipase (23-300) U/L - EKG Data EKG Comments: EKG obtained 6:51 AM, rate is 67 rhythm is sinus there is a normal axis and normal intervals, there are no acute ST elevations or depressions no evidence of acute ischemia or infarction. (Funmilayo Sands) Disposition <Benson Yang - Last Filed: 06/29/18 08:32> Is patient prescribed a controlled substance at d/c from ED?: No <Funmilayo Sands - Last Filed: 06/30/18 01:50> Clinical Impression: Acute appendicitis Disposition: ADMITTED IP TO THIS HOSP Condition: Stable
--- NOTE | 2018-06-29 08:01 | CT ---
EXAMINATION TYPE: CT angio thor/abd pel aorta DATE OF EXAM: 06/29/2018 COMPARISON: 07/23/2017 HISTORY: 62-year-old male pain, syncope, diaphoresis, Pain, SOB TECHNIQUE: Contiguous axial scanning of the chest, abdomen, and pelvis performed without and with IV Contrast, patient injected with 100 mL of Isovue 370. Coronal/sagittal MIP reconstructions performed. 3-D reconstructions generated on a dedicated independent workstation. CT DLP: 1956.2 mGycm Automated exposure control for dose reduction was used. FINDINGS: Chest: Heart normal size without pericardial effusion. Some scattered prominent but nonenlarged mediastinal and hilar lymph nodes. Small calcified mediastin al lymph nodes suggest prior granulomatous disease. Mild dependent atelectasis in the lungs. Calcifie d granuloma posterior left upper lung. 6 mm smaller nodularity anterior right mid to lower lung. Approximately 5 nodules clustered adjacent to each other are present. Small emphysematous cyst right base. Strandy atelectasis or scarring at the left base. No consolidati on or pleural effusion. Multiple hepatic cysts redemonstrated, largest anterior liver lobe measuring 3.6 cm. Tiny hernia. Cholecystectomy clips. Adrenal glands, kidneys, spleen with tiny hilar splenule, and pancreas appear within normal limits. No dilated small bowel, free fluid, or free air. Small fatty periumbilical hernia measuring 2.1 cm wide. The hernia neck measures 6 mm wide. No mesenteric or retroperitoneal lymphadenopathy. Mild overall stone burden. Thickened, inflamed and fluid-filled appendix with a caliber of 1.2 cm right lower quadrant with mode rate surrounding inflammatory fat stranding. Pelvis: Bladder nondistended. Prostate gland measures 4.5 cm wide. No abnormal fluid collection in the pelvis or pelvic lymphadenopathy. Inguinal lymph nodes measure up to 1.1 cm short axis. Bones: Postsurgical changes of right-sided L3-L5 posterior lumbar fusion. Scattered fatty matrix hemangiomas in the spine. No osseous destructive process seen. VASCULATURE: Ascending aorta is ectatic and 3.8 cm No evidence for acute intramural hematoma and the noncontrast sequences. No evidence for aortic dissection. This convention arch vessel branching anatomy. In the abdomen, there there is an accessory left renal artery. No evidence for AAA. IMPRESSION: 1. EXAM POSITIVE FOR ACUTE APPENDICITIS WITH MODERATE SURROUNDING INFLAMMATION. NO ABSCESS OR FREE AI R. 2. NO EVIDENCE FOR AORTIC DISSECTION OR ACUTE AORTIC INJURY. ECTATIC ASCENDING AORTA AT 3.8 CM. 3. SMALL 2.1 CM FATTY LEFT PERIUMBILICAL HERNIA WITH A 6 MM HERNIA NECK. 4. A FEW 6 MM AND SMALLER PULMONARY NODULES. SIX-MONTH FOLLOW-UP CT CHEST RECOMMENDED TO REASSESS.
[2018-06-29] MEDS ORDERED: PIPERACILLIN-TAZOBACTAM 3.375 GM in SODIUM CHLORIDE 0.9% 100 ML IVPB STA (08:10)
--- NOTE | 2018-06-29 08:25 | XR ---
EXAMINATION TYPE: XR chest 2V DATE OF EXAM: 06/29/2018 COMPARISON: Correlation CT same day HISTORY: 62 year-old male right upper quadrant flank/lung pain, diaphoresis, near syncope TECHNIQUE: PA and lateral views FINDINGS: Heart normal size. Aorta within normal limits. Diffuse interstitial prominence has a chronic appearan ce. Some patchy left basilar opacity likely atelectasis/scarring when correlating with the CT same da y. No pleural effusion. IMPRESSION: Chronic appearing changes with some patchy left basilar opacity likely scarring or atelectasis when c orrelating to the CT performed same day. No definite acute cardiopulmonary process.
--- NOTE | 2018-06-29 08:35 | XR ---
EXAMINATION TYPE: XR KUB DATE OF EXAM: 06/29/2018 CLINICAL DATA: 62-year-old male abdominal pain, PHH COMPARISON: 10/31/2017 FINDINGS: Lung bases are clear. No evidence for free intraperitoneal air. Nonobstructive bowel gas pattern. Some small colonic air-fluid levels on the right side of the abdome n. Right-sided posterior fusion changes from L3 through L5 with levoconvex scoliosis. IV contrast seen within the renal collecting systems and bladder. IMPRESSION: No evidence for free air or bowel obstruction. Small colonic air-fluid levels on the right side of th e abdomen could represent a mild regional ileus. Note CT findings positive for acute appendicitis.
[2018-06-29] MEDS ORDERED: MORPHINE SULFATE 4 MG/ML SYRINGE IV PRN (08:36)
[2018-06-29] MEDS ORDERED: ONDANSETRON 4 MG/2 ML VIAL IVP PRN (08:36)
[2018-06-29] MEDS ORDERED: NALOXONE 0.4 MG/ML 1 ML VIAL IV PRN ×2 (08:36→11:57)
[2018-06-29] MEDS ORDERED: ACETAMINOPHEN TAB 325 MG TAB PO PRN (08:36)
[2018-06-29] MEDS: SODIUM CHLORIDE 0.9% 1,000 ML IV SCH ×3 (08:48→23:07)
[2018-06-29 09:38] LABS: Appearance,Urine Clear (Clear); Bilirubin,Urine Negative (Negative); Blood,Urine Negative (Negative); Color,Urine Yellow; Glucose,Urine (UA) Negative (Negative); Ketones,Urine Negative (Negative); Leukocyte Esterase,Urine Negative (Negative); Nitrite,Urine Negative (Negative); Protein,Urine Negative (Negative); Urobilinogen,Urine <2.0 mg/dL (<2.0)
[2018-06-29 09:45] LABS: Glucose,Whole Blood 98 mg/dL (75-99)
[2018-06-29] MEDS ORDERED: DEXAMETHASONE SOD PHOS (MDV) 100 MG/10 ML VIAL ONE (10:10)
[2018-06-29] MEDS ORDERED: fentaNYL (PF) 50 MCG/ML 2 ML AMP ONE (10:10)
[2018-06-29] MEDS ORDERED: SUCCINYLCHOLINE CHLORIDE 100 MG/5 ML SYR IV ONE (10:10)
[2018-06-29] MEDS ORDERED: LIDOCAINE 1% INJ 10MG/ML (20 ML MDV) ONE (10:10)
[2018-06-29] MEDS ORDERED: MIDAZOLAM 2 MG/2 ML VIAL ONE (10:10)
[2018-06-29] MEDS ORDERED: ROCURONIUM BROMIDE 10 MG/ML 10 ML VIAL IV ONE (10:10)
[2018-06-29] MEDS ORDERED: ONDANSETRON 4 MG/2 ML VIAL ONE (10:10)
[2018-06-29] MEDS ORDERED: NEOSTIGMINE 1 MG/ML 10 ML VIAL ONE (10:10)
[2018-06-29] MEDS ORDERED: PROPOFOL 10 MG/ML 20 ML VIAL IV ONE (10:10)
[2018-06-29] MEDS ORDERED: HEPARIN SODIUM,PORCINE 5,000 UNIT/ML 1 ML VIAL ONE (10:10)
[2018-06-29] MEDS ORDERED: GLYCOPYRROLATE 0.2 MG/ML 2 ML VIAL ONE (10:10)
--- NOTE | 2018-06-29 10:17 | P.GSHP ---
History of Present Illness H&P Date: 06/29/18 62 year old male with 2 days abdominal pain that has been located in his RLQ. He denies any pain like this in the past. Past medical history significant for DVT and melanoma. He is no longer on anticoagulation. He has had cholecystectomy in the past. He denies Fever/chills. He has had normal BM. His last colonoscopy was a year ago and normal. Past Medical History Past Medical History: Cancer Additional Past Medical History / Comment(s): hx skin cancer 2003, DVT right leg 2016 (states he was on xarelto - last dose was Mar , states last ultrasound showed clot still there., 4 back surgeries with Chronic back pain., states having abd pain and rectal bleeding for 2 months. History of Any Multi-Drug Resistant Organisms: None Reported Past Surgical History: Back Surgery, Cholecystectomy, Orthopedic Surgery, Tonsillectomy Additional Past Surgical History / Comment(s): SKIN CANCER, . RIGHT SHOULDER SURGERY x2, BILATERAL KNEE ARTHROSCOPY. Past Anesthesia/Blood Transfusion Reactions: No Reported Reaction Past Psychological History: No Psychological Hx Reported Smoking Status: Never smoker - Past Family History Father Family Medical History: Cancer Additional Family Medical History / Comment(s): PROSTATE CANCER Mother Family Medical History: Cancer Additional Family Medical History / Comment(s): OVARIAN CANCER Sister(s) Family Medical History: Cancer, Deep Vein Thrombosis (DVT) Additional Family Medical History / Comment(s): OVARIAN CANCER, BREAST CANCER Brother(s) Family Medical History: Cancer, Deep Vein Thrombosis (DVT), Pulmonary Embolus Additional Family Medical History / Comment(s): LEUKEMIA Medications and Allergies Home Medications Medication Instructions Recorded Confirmed Type Ibuprofen [Motrin Ib] 400 mg PO Q6H PRN 06/29/18 06/29/18 History Allergies Allergy/AdvReac Type Severity Reaction Status Date / Time No Known Allergies Allergy Verified 06/29/18 07:53 Surgical - Exam Osteopathic Statement: *. No significant issues noted on an osteopathic structural exam other than those noted in the History and Physical/Consult. Vital Signs Temp Pulse Resp BP Pulse Ox 97.8 F 67 20 112/73 95 06/29/18 06:19 06/29/18 06:19 06/29/18 06:19 06/29/18 06:19 06/29/18 06:19 - General well developed, well nourished, no distress - Eyes PERRL - Neck trachea midline - Respiratory normal expansion, normal respiratory effort - Cardiovascular Rhythm: regular - Abdomen non distended, TTP in RLQ Abdomen: soft - Neurologic normal coordination, normal sensation - Psychiatric oriented to time, oriented to person, oriented to place Results - Labs 06/29/18 06:31 06/29/18 06:31 Abnormal Lab Results - Last 24 Hours (Table) 06/29/18 06/29/18 Range/Units 06:31 06:31 WBC 13.2 H (3.8-10.6) k/uL Neutrophils # 10.9 H (1.3-7.7) k/uL Chloride 109 H (98-107) mmol/L Glucose 103 H (74-99) mg/dL Diabetes panel 06/29/18 Range/Units 06:31 Sodium 140 (137-145) mmol/L Potassium 4.7 (3.5-5.1) mmol/L Chloride 109 H (98-107) mmol/L Carbon Dioxide 22 (22-30) mmol/L BUN 15 (9-20) mg/dL Creatinine 1.04 (0.66-1.25) mg/dL Glucose 103 H (74-99) mg/dL Calcium 9.6 (8.4-10.2) mg/dL AST 44 (17-59) U/L ALT 29 (21-72) U/L Alkaline Phosphatase 45 (38-126) U/L Total Protein 7.2 (6.3-8.2) g/dL Albumin 4.3 (3.5-5.0) g/dL Calcium panel 06/29/18 Range/Units 06:31 Calcium 9.6 (8.4-10.2) mg/dL Albumin 4.3 (3.5-5.0) g/dL Pituitary panel 06/29/18 Range/Units 06:31 Sodium 140 (137-145) mmol/L Potassium 4.7 (3.5-5.1) mmol/L Chloride 109 H (98-107) mmol/L Carbon Dioxide 22 (22-30) mmol/L BUN 15 (9-20) mg/dL Creatinine 1.04 (0.66-1.25) mg/dL Glucose 103 H (74-99) mg/dL Calcium 9.6 (8.4-10.2) mg/dL Adrenal panel 06/29/18 Range/Units 06:31 Sodium 140 (137-145) mmol/L Potassium 4.7 (3.5-5.1) mmol/L Chloride 109 H (98-107) mmol/L Carbon Dioxide 22 (22-30) mmol/L BUN 15 (9-20) mg/dL Creatinine 1.04 (0.66-1.25) mg/dL Glucose 103 H (74-99) mg/dL Calcium 9.6 (8.4-10.2) mg/dL Total Bilirubin 1.3 (0.2-1.3) mg/dL AST 44 (17-59) U/L ALT 29 (21-72) U/L Alkaline Phosphatase 45 (38-126) U/L Total Protein 7.2 (6.3-8.2) g/dL Albumin 4.3 (3.5-5.0) g/dL - Imaging CT scan - abdomen: report reviewed, image reviewed CT scan - pelvis: report reviewed, image reviewed Assessment and Plan Assessment: acute appendicitis Plan: IV abx, NPO, IVF, plan for lap appy possible open discussed with patient and family. They understood and agreed.
[2018-06-29] MEDS ORDERED: BUPIVACAIN-EPI 0.5%-1:200,000 30 ML VIAL SQ ONE ×2 (10:41)
[2018-06-29] MEDS ORDERED: SODIUM CHLORIDE 0.9% 600 ML IV ONE (10:41)
[2018-06-29] MEDS ORDERED: LACTATED RINGERS 1,000 ML IV ONE ×2 (11:06→11:57)
[2018-06-29 11:48] VITALS: RESP 16
--- NOTE | 2018-06-29 12:06 | P.OP ---
Date of Procedure: 06/29/18 Preoperative Diagnosis: Acute appendicitis Postoperative Diagnosis: Same Procedure(s) Performed: Laparoscopic Appendectomy Anesthesia: RIPA Surgeon: Celso Raymundo Estimated Blood Loss (ml): 5 Condition: stable Disposition: PACU Indications for Procedure: 62-year-old male presented with signs and symptoms consistent with acute appendicitis seems described risk benefits and alternatives to laparoscopic appendectomy couldn't risks of bleeding infection damage shunting tissue need further operation and need to convert to open patient stated he understood agreed and consented Description of Procedure: Patient's primary operative suite remained supine position underwent general endotracheal anesthesia per Department of anesthesia he was prepped and draped in usual sterile fashion timeout was performed correct patient correct procedure correct site was verified. A 3 cm incision was made inferior to the umbilicus carried down to the incisional hernia from his previous cholecystectomy. Fascia was cleared around the hernia was noted to be approximately 1 cm. The hernia was reduced and the 11 mm port was placed through the defect. The abdomen was insufflated and no injuries were noted. A 5 mm port was placed in the left midabdomen and a 5 mm port was placed suprapubic both under direct visualization. The patient was placed in steep Trendelenburg with the right side up and the base the appendix visualized at the base of the cecum. There was acute inflammation noted. The appendix was in the retrocecal position. The cecum and ascending colon were taken down along the white line of Toldt and retracted medially. The tip of the appendix was visualized and the mesial appendix was taken down using LigaSure device. The base of the appendix was stapled across at the base of the cecum using a 45 mm purple load Endo MIGUEL stapler. The appendix was removed in Endo Catch bag. The area was irrigated and suctioned and hemostasis was noted. The umbilical hernia site was then closed with 0 Vicryl in an interrupted fashion with 8 of a Jorge-Leighton suture passer. The abdomen was desufflated and ports removed under direct visualization hemostasis was noted skin was closed using 4-0 subcuticular Vicryl sutures followed by skin glue patient tolerated the procedure well there are no apparent complications
[2018-06-29 12:25] LABS: Specific Gravity,Urine 1.049 (1.001-1.035)
[2018-06-29] MEDS: PIPERACILLIN-TAZOBACTAM 3.375 GM in SODIUM CHLORIDE 0.9% 100 ML IVPB SCH ×2 (15:43→23:07)
[2018-06-29] MEDS: HEPARIN SODIUM,PORCINE 5,000 UNIT/ML 1 ML VIAL SQ SCH ×2 (15:43→23:07)
[2018-06-29] MEDS: HYDROcodone/APAP 5-325MG 1 EACH TAB PO PRN ×2 (18:10→23:07)
[2018-06-30 07:40] VITALS: BP 97/58; PULSE 52; TEMP 97.9
[2018-06-30] MEDS: HEPARIN SODIUM,PORCINE 5,000 UNIT/ML 1 ML VIAL SQ SCH (09:59)
[2018-06-30] MEDS: SODIUM CHLORIDE 0.9% 1,000 ML IV SCH (12:37)
--- NOTE | 2018-06-30 14:05 | US ---
EXAMINATION TYPE: US venous doppler duplex LE RT DATE OF EXAM: 06/30/2018 1:29 PM COMPARISON: 07/20/2016 CLINICAL HISTORY: history of clot. Patient states history of DVT right popliteal vein SIDE PERFORMED: right TECHNIQUE: The lower extremity deep venous system is examined utilizing real time linear array sonog felipe with graded compression, doppler sonography and color-flow sonography. VESSELS IMAGED: External Iliac Vein (EIV) Common Femoral Vein Deep Femoral Vein Greater Saphenous Vein * Femoral Vein Popliteal Vein Small Saphenous Vein * Proximal Calf Veins (* superficial vessels) Grayscale, color doppler, spectral doppler imaging performed of the deep veins of the right lower ext remity. Right Leg: Positive for Non-occluding DVT right distal popliteal vein IMPRESSION: Positive deep venous thrombosis of the right popliteal vein. This appears incompletely oc clusive, eccentric in location and at the same location as the prior of 07/20/2016 therefore favored t o be chronic.
--- NOTE | 2018-07-03 07:53 | P.DS ---
Providers Date of admission: 06/29/18 08:45 Attending physician: Celso Raymundo DO Primary care physician: Irma Cox [place] [facility] Course: Patient was admitted after uncomplicated lap appy for observation. The following day he was doing well, abdominal pain improved, tolerating diet. He has history of RLE DVT and was complaining of some RLQ pain with no swelling. RLE US showed chronic DVT with no change, he was instructed to follow up with Dr. Maurice who he follows with for his DVT. He was dicharged home in stable condition with insructions to also follow up with me and his PCP Patient Condition at Discharge: Stable Plan - Discharge Summary Discharge Rx Participant: Yes New Discharge Prescriptions: New Docusate [Colace] 100 mg PO DAILY #10 capsule Hydrocodone/Acetaminophen [Jefferson 5-325] 1 tab PO Q6HR PRN 3 Days #12 tab PRN Reason: Pain No Action Ibuprofen [Motrin Ib] 400 mg PO Q6H PRN PRN Reason: Pain Discharge Medication List Ibuprofen [Motrin Ib] 400 mg PO Q6H PRN 06/29/18 [History] Docusate [Colace] 100 mg PO DAILY #10 capsule 06/30/18 [Rx] Hydrocodone/Acetaminophen [Jefferson 5-325] 1 tab PO Q6HR PRN 3 Days #12 tab 06/30/18 [Rx] Follow up Appointment(s)/Referral(s): Celso Raymundo DO [Doctor of Osteopathic Medicine] - 07/07/18 3:15 pm Na Rg NPC [Nurse Practitioner] - 07/02/18 10:30 am Ugo Maurice DO [Doctor of Osteopathic Medicine] - 1 Week (Office is closed please call for follow up on DVT) Patient Instructions/Handouts: Laparoscopic Appendectomy (DC) Discharge Disposition: HOME SELF-CARE
== END 2018-06-30 15:26 | disposition home or self-care (01) ==
LOC: EC 06:17 → 4SSUR 08:45
PROVIDERS: ADMIT Student in an Organized Health Care Education/Training Program; ATTEND Student in an Organized Health Care Education/Training Program
DX: K35.80 Unspecified acute appendicitis (principal); G89.29 Other chronic pain; M54.9 Dorsalgia, unspecified; R07.81 Pleurodynia; R61 Generalized hyperhidrosis; R42 Dizziness and giddiness; Z90.49 Acquired absence of other specified parts of digestive tract; Z86.718 Personal history of other venous thrombosis and embolism; Z85.820 Personal history of malignant melanoma of skin; Z80.42 Family history of malignant neoplasm of prostate; Z80.3 Family history of malignant neoplasm of breast; Z80.6 Family history of leukemia; Z80.41 Family history of malignant neoplasm of ovary
CPT/HCPCS: 44970; 99285; 36415; 88304; 80053; 82150; 83690; 84484; 85025; 85610; 85730; 81003; 87040; 71046; 74018; 93971; 71275; 74174; G0378 ×2; J2543; J2250; J2270; J1644 ×2; J2710; J2405; J2001; J3010; J1100; J0330; J2704; Q9967

== ENCOUNTER 2019-03-12 18:51 | Emergency (ER) | payer BC ==
[2019-03-12] MEDS ORDERED: SODIUM CHLORIDE 0.9% 1,000 ML IV STA ×2 (19:02)
[2019-03-12] MEDS ORDERED: IPRATROPIUM-ALBUTEROL 3 ML NEB INHALATION STA (19:02)
--- NOTE | 2019-03-12 19:03 | ED ---
SOB HPI - General Chief Complaint: Shortness of Breath Stated Complaint: SOB, blood clot history Time Seen by Provider: 03/12/19 19:02 Source: patient, RN notes reviewed, old records reviewed Mode of arrival: ambulatory Limitations: no limitations - History of Present Illness Initial Comments: This is a 63-year-old male here for evaluation patient was admitted for exertional dyspnea. No history of heart disease nonsmoker has history of DVT thinks he may have a blood clot in his lungs. Patient symptoms are just regular fluids versus [place] for quite some time. No fevers no cough or congestion no recent travel history or sick contacts. Please prior DVT was related to prolonged travel MD Complaint: shortness of breath (Only with exertion) -: week(s) Severity: mild Severity scale (1-10): 3 Consistency: intermittent, now resolved Improves With: rest Worsens With: exertion Known History Of: other (None) Context: other (None) Associated Symptoms: chest pain (Occasional pain) - Related Data Home Medications Medication Instructions Recorded Confirmed Ibuprofen [Motrin Ib] 400 mg PO Q6H PRN 06/29/18 06/29/18 Previous Rx's Medication Instructions Recorded Docusate [Colace] 100 mg PO DAILY #10 capsule 06/30/18 Hydrocodone/Acetaminophen [[place] 1 tab PO Q6HR PRN 3 Days #12 tab 06/30/18 5-325] Allergies Allergy/AdvReac Type Severity Reaction Status Date / Time No Known Allergies Allergy Verified 03/12/19 18:57 Review of Systems ROS Statement: Those systems with pertinent positive or pertinent negative responses have been documented in the HPI. ROS Other: All systems not noted in ROS Statement are negative. Past Medical History Past Medical History: Cancer Additional Past Medical History / Comment(s): hx skin cancer 2003, DVT right leg 2016 (states he was on xarelto - last dose was Mar , states last ultrasound showed clot still there., 4 back surgeries with Chronic back pain., states having abd pain and rectal bleeding for 2 months. History of Any Multi-Drug Resistant Organisms: None Reported Past Surgical History: Appendectomy, Back Surgery, Cholecystectomy, Orthopedic Surgery, Tonsillectomy Additional Past Surgical History / Comment(s): SKIN CANCER, . RIGHT SHOULDER SURGERY x2, BILATERAL KNEE ARTHROSCOPY. Past Anesthesia/Blood Transfusion Reactions: No Reported Reaction Past Psychological History: No Psychological Hx Reported Smoking Status: Never smoker Past Alcohol Use History: None Reported Past Drug Use History: None Reported - Past Family History Father Family Medical History: Cancer Additional Family Medical History / Comment(s): PROSTATE CANCER Mother Family Medical History: Cancer Additional Family Medical History / Comment(s): OVARIAN CANCER Sister(s) Family Medical History: Cancer, Deep Vein Thrombosis (DVT) Additional Family Medical History / Comment(s): OVARIAN CANCER, BREAST CANCER Brother(s) Family Medical History: Cancer, Deep Vein Thrombosis (DVT), Pulmonary Embolus Additional Family Medical History / Comment(s): LEUKEMIA General Exam Limitations: no limitations General appearance: alert, in no apparent distress Head exam: Present: atraumatic, normocephalic, normal inspection Eye exam: Present: normal appearance, PERRL, EOMI. Absent: scleral icterus, conjunctival injection, periorbital swelling ENT exam: Present: normal exam, mucous membranes moist Neck exam: Present: normal inspection. Absent: tenderness, meningismus, lymphadenopathy Respiratory exam: Present: normal lung sounds bilaterally. Absent: respiratory distress, wheezes, rales, rhonchi, stridor Cardiovascular Exam: Present: regular rate, normal rhythm, normal heart sounds. Absent: systolic murmur, diastolic murmur, rubs, gallop, clicks GI/Abdominal exam: Present: soft, normal bowel sounds. Absent: distended, tenderness, guarding, rebound, rigid Extremities exam: Present: normal inspection, full ROM, normal capillary refill. Absent: tenderness, pedal edema, joint swelling, calf tenderness Back exam: Present: normal inspection Neurological exam: Present: alert, oriented X3, CN II-XII intact Psychiatric exam: Present: normal affect, normal mood Skin exam: Present: warm, dry, intact, normal color. Absent: rash Course Vital Signs 03/12/19 03/12/19 03/12/19 18:54 20:18 20:26 Temperature 97.7 F Pulse Rate 77 83 63 Respiratory 16 16 16 Rate Blood Pressure 132/82 O2 Sat by Pulse 99 Oximetry 03/12/19 20:44 Temperature Pulse Rate 68 Respiratory 18 Rate Blood Pressure 103/71 O2 Sat by Pulse 95 Oximetry - Reevaluation(s) Reevaluation #1: 03/12/19 21:10 medical records reviewed 03/12/19 21:11 Reevaluation #2: 03/12/19 21:11 no acute distress no shortness of breath no chest pain Medical Decision Making - Medical Decision Making 63 male date ER for evaluation with exertional dyspnea. CT negative for PE labwork otherwise unremarkable it is negative patient in no distress with no pain or shortness of currently and can be discharged home - Lab Data Result diagrams: 03/12/19 19:29 03/12/19 19:29 Lab Results 03/12/19 03/12/19 03/12/19 Range/Units 19:29 19:29 19:29 WBC 5.7 (3.8-10.6) k/uL RBC 4.85 (4.30-5.90) m/uL Hgb 14.2 (13.0-17.5) gm/dL Hct 42.3 (39.0-53.0) % MCV 87.3 (80.0-100.0) fL MCH 29.3 (25.0-35.0) pg MCHC 33.5 (31.0-37.0) g/dL RDW 13.3 (11.5-15.5) % Plt Count 181 (150-450) k/uL Neutrophils % 68 % Lymphocytes % 20 % Monocytes % 6 % Eosinophils % 3 % Basophils % 1 % Neutrophils # 3.9 (1.3-7.7) k/uL Lymphocytes # 1.2 (1.0-4.8) k/uL Monocytes # 0.3 (0-1.0) k/uL Eosinophils # 0.2 (0-0.7) k/uL Basophils # 0.1 (0-0.2) k/uL PT 9.9 (9.0-12.0) sec INR 0.9 (<1.2) APTT 24.6 (22.0-30.0) sec D-Dimer 0.39 (<0.60) mg/L FEU Sodium 140 (137-145) mmol/L Potassium 4.2 (3.5-5.1) mmol/L Chloride 111 H (98-107) mmol/L Carbon Dioxide 20 L (22-30) mmol/L Anion Gap 9 mmol/L BUN 22 H (9-20) mg/dL Creatinine 1.32 H (0.66-1.25) mg/dL Est GFR (CKD-EPI)AfAm 66 (>60 ml/min/1.73 sqM) Est GFR (CKD-EPI)NonAf 57 (>60 ml/min/1.73 sqM) Glucose 100 H (74-99) mg/dL Calcium 9.0 (8.4-10.2) mg/dL Magnesium 2.2 (1.6-2.3) mg/dL Total Bilirubin 0.6 (0.2-1.3) mg/dL AST 32 (17-59) U/L ALT 33 (21-72) U/L Alkaline Phosphatase 41 (38-126) U/L Troponin I (0.000-0.034) ng/mL NT-Pro-B Natriuret Pep pg/mL Total Protein 6.6 (6.3-8.2) g/dL Albumin 4.0 (3.5-5.0) g/dL 03/12/19 03/12/19 Range/Units 19:29 19:29 WBC (3.8-10.6) k/uL RBC (4.30-5.90) m/uL Hgb (13.0-17.5) gm/dL Hct (39.0-53.0) % MCV (80.0-100.0) fL MCH (25.0-35.0) pg MCHC (31.0-37.0) g/dL RDW (11.5-15.5) % Plt Count (150-450) k/uL Neutrophils % % Lymphocytes % % Monocytes % % Eosinophils % % Basophils % % Neutrophils # (1.3-7.7) k/uL Lymphocytes # (1.0-4.8) k/uL Monocytes # (0-1.0) k/uL Eosinophils # (0-0.7) k/uL Basophils # (0-0.2) k/uL PT (9.0-12.0) sec INR (<1.2) APTT (22.0-30.0) sec D-Dimer (<0.60) mg/L FEU Sodium (137-145) mmol/L Potassium (3.5-5.1) mmol/L Chloride (98-107) mmol/L Carbon Dioxide (22-30) mmol/L Anion Gap mmol/L BUN (9-20) mg/dL Creatinine (0.66-1.25) mg/dL Est GFR (CKD-EPI)AfAm (>60 ml/min/1.73 sqM) Est GFR (CKD-EPI)NonAf (>60 ml/min/1.73 sqM) Glucose (74-99) mg/dL Calcium (8.4-10.2) mg/dL Magnesium (1.6-2.3) mg/dL Total Bilirubin (0.2-1.3) mg/dL AST (17-59) U/L ALT (21-72) U/L Alkaline Phosphatase (38-126) U/L Troponin I <0.012 (0.000-0.034) ng/mL NT-Pro-B Natriuret Pep 35 pg/mL Total Protein (6.3-8.2) g/dL Albumin (3.5-5.0) g/dL - EKG Data -: EKG Interpreted by Me (EKG shows sinus rhythm rate of 70,WA 228 QRS 92 WTc 416) - Radiology Data Radiology results: report reviewed (CTA chest negative for PE), image reviewed Disposition Clinical Impression: Exertional dyspnea Disposition: HOME SELF-CARE Condition: Good Instructions (If sedation given, give patient instructions): Dyspnea (ED) Is patient prescribed a controlled substance at d/c from ED?: No Referrals: Irma Otto III, MD [Primary Care Provider] - 1-2 days
[2019-03-12 19:44] LABS: Basophils # (A) 0.1 k/uL (0-0.2); Basophils % (A) 1 %; Eosinophils # (A) 0.2 k/uL (0-0.7); Eosinophils % (A) 3 %; HCT 42.3 % (39.0-53.0); HGB 14.2 gm/dL (13.0-17.5); Lymphocytes # (A) 1.2 k/uL (1.0-4.8); Lymphocytes % (A) 20 %; MCH 29.3 pg (25.0-35.0); MCHC 33.5 g/dL (31.0-37.0); MCV 87.3 fL (80.0-100.0); Mean Platelet Volume 7.1; Monocytes # (A) 0.3 k/uL (0-1.0); Monocytes % (A) 6 %; Neutrophils # (A) 3.9 k/uL (1.3-7.7); Neutrophils % (A) 68 %; Platelet Count 181 k/uL (150-450); RBC 4.85 m/uL (4.30-5.90); RDW 13.3 % (11.5-15.5); WBC 5.7 k/uL (3.8-10.6)
[2019-03-12 19:54] LABS: Magnesium 2.2 mg/dL (1.6-2.3); Potassium 4.2 mmol/L (3.5-5.1); Total Bilirubin 0.6 mg/dL (0.2-1.3); Total Protein 6.6 g/dL (6.3-8.2)
--- NOTE | 2019-03-12 20:21 | CT ---
EXAMINATION TYPE: CT angio chest DATE OF EXAM: 03/12/2019 COMPARISON: CTA June 29, 2018. HISTORY: Shortness of breath, history of blood clots. CT DLP: 612.2 mGycm. Automated Exposure Control for Dose Reduction was Utilized. CONTRAST: CTA scan of the thorax is performed with IV Contrast, patient injected with 80ml mL of Isovue 370, pu lmonary embolism protocol. MIP Images are created on CT scanner and reviewed. FINDINGS: LUNGS: Elevated left hemidiaphragm is redemonstrated. Dependent atelectasis bilateral lower lobes. No suspicious infiltrate. Lingular linear scarring and/or atelectasis redemonstrated. No pleural effusi on or pneumothorax. No suspicious new nodules. Stable 5 mm nodules right middle lobe axial image 78. MEDIASTINUM: There is suboptimal bolus with near equal contrast in right and left heart systems witho ut CT evidence for acute pulmonary embolism. There are no greater than 1 cm hilar or mediastinal lym ph nodes. No cardiomegaly or pericardial effusion is seen. OTHER: Simple-appearing thin-walled cysts throughout the visualized liver are redemonstrated. Cholecy stectomy clips are noted. Scoliotic curvature is present. IMPRESSION: No CT evidence for acute pulmonary embolism. No suspicious acute pulmonary process. Stabl e right middle lobe small nodules.
[2019-03-12 20:22] LABS: D-Dimer 0.39 mg/L FEU (<0.60); INR 0.9 (<1.2); Partial Thromboplastin Time 24.6 sec (22.0-30.0); Prothrombin Time 9.9 sec (9.0-12.0)
[2019-03-12 20:46] VITALS: RESP 18
[2019-03-12 21:23] VITALS: BP 94/69; PULSE 66; TEMP 97.4
== END 2019-03-12 21:22 | disposition home or self-care (01) ==
LOC: EC 18:51
DX: R06.09 Other forms of dyspnea (principal); R07.9 Chest pain, unspecified; Z85.828 Personal history of other malignant neoplasm of skin; Z86.718 Personal history of other venous thrombosis and embolism; Z98.890 Other specified postprocedural states
CPT/HCPCS: 36415; 94640; 93005; 85379; 83880; 80053; 83735; 84484; 85025; 85610; 85730; 71275; 99285; 96360; 96361; Q9967

== ENCOUNTER → 2019-11-02 | Outpatient (CLI) | payer BC ==
[2019-11-02 17:59] LABS: Hemoglobin A1C 5.6 % (4.0-6.0)
[2019-11-02 20:37] LABS: % Iron Saturation 23.01 (15.00-50.00); African American GFR (CKD) 74.1 (60.0-200.0); Albumin 4.7 g/dL (3.80-4.90); Albumin/Globulin Ratio 2.14 (1.60-3.17); Anion Gap 8.1 mmol/L (4.00-12.00); BUN/Creat Ratio 17.5 Ratio (12.00-20.00); C Reactive Protein, High Sens 3.31 mg/L (0.000-3.000); Calcium 9.5 mg/dL (8.7-10.3); Carbon Dioxide 25.9 mmol/L (21.6-31.8); Chol/HDL Ratio 5.05; Globulin 2.2 g/dL (1.6-3.3); LDL Cholesterol,Calculated 152.4 mg/dL (0.0-131.0); Potassium 5.1 mmol/L (3.5-5.5); Total Bilirubin 0.7 mg/dL (0.3-1.2); Total Protein 6.9 g/dL (6.2-8.2); Uric Acid 9.1 mg/dL (3.7-8.7); VLDL Calculation 25.6 mg/dL (5.00-40.00)
[2019-11-02 20:50] LABS: T4, Free (Free Thyroxine) 0.9 ng/dL (0.80-1.80)
[2019-11-02 21:43] LABS: Egg White IgE <0.10 kU/L
[2019-11-02 21:44] LABS: Codfish IgE <0.10 kU/L
[2019-11-02 21:45] LABS: Peanut IgE <0.10 kU/L; Shrimp IgE <0.10 kU/L; Soybean IgE <0.10 kU/L
[2019-11-02 21:46] LABS: Clam IgE <0.10 kU/L; Scallop IgE <0.10 kU/L; Walnut IgE (Food) <0.10 kU/L
[2019-11-02 22:01] LABS: Insulin Level 7.5 mIU/mL (3.0-25.0)
[2019-11-02 22:22] LABS: Thyroid Peroxidase Antibodies <28.0 U/mL (0.0-60.0)
[2019-11-02 22:45] LABS: DHEA Sulfate 23.6 ug/dL (34.5-568.9)
== END | disposition home or self-care (01) ==
LOC: LABWHC1 09:14
PROVIDERS: ATTEND Dietitian, Registered
DX: R70.0 Elevated erythrocyte sedimentation rate (principal); R53.82 Chronic fatigue, unspecified; R94.5 Abnormal results of liver function studies; D89.89 Other specified disorders involving the immune mechanism, not elsewhere classified; J30.5 Allergic rhinitis due to food
CPT/HCPCS: 36415; 80053; 80061; 82306; 82533; 82607; 82627; 82728; 82785; 82947; 82977; 83036; 83090; 83525; 83540; 83550; 83735; 84140; 84402; 84403; 84439; 84443; 84481; 84482; 84550; 84630; 85652; 86003; 86038; 86141; 86376; 86800

== ENCOUNTER → 2019-11-09 | Outpatient (CLI) | payer BC | END | disposition home or self-care (01) | LOC: LABWHC1 12:01 | PROVIDERS: ATTEND Dietitian, Registered | DX: K50.90 Crohn's disease, unspecified, without complications (principal); R53.83 Other fatigue | CPT/HCPCS: 36415 ==

== ENCOUNTER 2020-11-11 21:35 | Inpatient (IN) | payer BC, MEDICARE ==
--- NOTE | 2020-11-11 22:46 | XR ---
EXAMINATION TYPE: XR chest 1V portable DATE OF EXAM: 11/11/2020 COMPARISON: 06/29/2018 HISTORY: Pneumonia. Short of breath. TECHNIQUE: [place] view FINDINGS: Heart and mediastinum appear normal. Lungs are clear of infiltrate. There is no heart failu re. There are no hilar masses. Bony thorax appears intact. IMPRESSION: No active cardiopulmonary disease. Normal heart. There is clearing of the minimal infiltr ate left lung base compared to old exam.
[2020-11-11 22:59] LABS: Basophils % (A) 1 %; Eosinophils % (A) 1 %; HCT 44.4 % (39.0-53.0); HGB 14.7 gm/dL (13.0-17.5); Lymphocytes # (A) 0.2 k/uL (1.0-4.8); Lymphocytes % (A) 4 %; MCH 30.6 pg (25.0-35.0); MCV 92.6 fL (80.0-100.0); Mean Platelet Volume 8.8; Monocytes # (A) 0.2 k/uL (0-1.0); Monocytes % (A) 3 %; Neutrophils # (A) 6.3 k/uL (1.3-7.7); Neutrophils % (A) 92 %; Platelet Count 152 k/uL (150-450); RBC 4.79 m/uL (4.30-5.90); RDW 13.2 % (11.5-15.5); WBC 6.8 k/uL (3.8-10.6)
[2020-11-11 23:12] LABS: INR 0.9 (<1.2); Partial Thromboplastin Time 24.5 sec (22.0-30.0); Prothrombin Time 9.5 sec (9.0-12.0)
--- NOTE | 2020-11-11 23:22 | ED ---
SOB HPI - General Source: patient Mode of arrival: ambulatory <Tee Rene - Last Filed: 11/12/20 00:38> <Vadim Nash - Last Filed: 11/23/20 20:49> - General Chief Complaint: Shortness of Breath Stated Complaint: SOB, fever COVID + Time Seen by Provider: 11/11/20 21:52 - History of Present Illness Initial Comments: 65-year-old male presents to emergency room with a chief complaint of fever or shortness of breath. Patient reports he tested positive for Covid 7 days ago and he has been gradually getting worse. States the symptoms have increased in severity over the last 2 days particularly. Patient reports increased exertion al dyspnea with occasional left-sided chest pain. States she has been running a fever and not able to break it with [id number] antipyretics. States he took Tylenol Motrin APM and continue to have a fever. Patient also reports generalized fatigue and some nausea but denies any vomiting diarrhea or constipation. (Tee Rene) - Related Data Home Medications Medication Instructions Recorded Confirmed Ibuprofen [Motrin Ib] 800 mg PO Q6H PRN 06/29/18 11/11/20 Acetaminophen Tab [Tylenol] 500 mg PO Q6H PRN 11/11/20 11/11/20 Albuterol Inhaler [Ventolin Hfa 2 puff INHALATION RT-Q4H PRN 11/11/20 11/11/20 Inhaler] Famotidine [Pepcid AC] 20 mg PO DAILY 11/11/20 11/11/20 Previous Rx's Medication Instructions Recorded Ascorbic Acid [Vitamin C] 500 mg PO DAILY #20 tab 11/12/20 Cholecalciferol [Vitamin D3 (25 25 mcg PO DAILY #30 tab 11/12/20 Mcg = 1000 Iu)] Zinc Sulfate 220 mg PO DAILY #20 capsule 11/12/20 dexAMETHasone ORAL [Hexadrol] 4 mg PO DAILY #10 tab 11/12/20 Allergies Allergy/AdvReac Type Severity Reaction Status Date / Time No Known Allergies Allergy Verified 11/11/20 22:29 Review of Systems ROS Other: All systems not noted in ROS Statement are negative. <Tee Rene - Last Filed: 11/12/20 00:38> ROS Other: All systems not noted in ROS Statement are negative. <Vadim Nash - Last Filed: 11/23/20 20:49> ROS Statement: Those systems with pertinent positive or pertinent negative responses have been documented in the HPI. Past Medical History Past Medical History: Cancer Additional Past Medical History / Comment(s): hx skin cancer 2003, DVT right leg 2016 (states he was on xarelto - last dose was Mar , states last ultr asound showed clot still there., 4 back surgeries with Chronic back pain., states having abd pain and rectal bleeding for 2 months. History of Any Multi-Drug Resistant Organisms: None Reported Past Surgical History: Appendectomy, Back Surgery, Cholecystectomy, Hernia Repair, Orthopedic Surgery, Tonsillectomy Additional Past Surgical History / Comment(s): SKIN CANCER, . RIGHT SHOULDER SURGERY x2, BILATERAL KNEE ARTHROSCOPY. Past Anesthesia/Blood Transfusion Reactions: No Reported Reaction Past Psychological History: No Psychological Hx Reported Smoking Status: Never smoker Past Alcohol Use History: None Reported Past Drug Use History: None Reported - Past Family History Father Family Medical History: Cancer Additional Family Medical History / Comment(s): PROSTATE CANCER Mother Family Medical History: Cancer Additional Family Medical History / Comment(s): OVARIAN CANCER Sister(s) Family Medical History: Cancer, Deep Vein Thrombosis (DVT) Additional Family Medical History / Comment(s): OVARIAN CANCER, BREAST CANCER Brother(s) Family Medical History: Cancer, Deep Vein Thrombosis (DVT), Pulmonary Embolus Additional Family Medical History / Comment(s): LEUKEMIA <SharivargasTee ramos - Last Filed: 11/12/20 00:38> General Exam Limitations: no limitations General appearance: alert, in no apparent distress Head exam: Present: atraumatic, normocephalic, normal inspection Eye exam: Present: normal appearance, PERRL, EOMI Pupils: Present: normal accommodation ENT exam: Present: normal exam, normal oropharynx, mucous membranes moist Neck exam: Present: normal inspection, full ROM. Absent: tenderness Respiratory exam: Present: normal lung sounds bilaterally. Absent: respiratory distress, wheezes, rales, rhonchi, stridor, chest wall tenderness, accessory muscle use Cardiovascular Exam: Present: regular rate, normal rhythm, normal heart sounds. Absent: systolic murmur GI/Abdominal exam: Present: soft. Absent: distended, tenderness, guarding, r ebound, rigid Extremities exam: Present: normal inspection, full ROM, normal capillary refill. Absent: tenderness, pedal edema, joint swelling Back exam: Present: normal inspection, full ROM. Absent: tenderness, CVA tenderness (R), CVA tenderness (L) Neurological exam: Present: alert, oriented X3 Psychiatric exam: Present: normal affect, normal mood Skin exam: Present: warm, dry, intact, normal color <Tee Rene - Last Filed: 11/12/20 00:38> Course Vital Signs 11/11/20 11/11/20 11/11/20 21:41 22:30 22:41 Temperature 99.5 F Pulse Rate 81 68 Respiratory 18 20 22 Rate Blood Pressure 135/87 143/101 O2 Sat by Pulse 94 L 92 L Oximetry 11/11/20 11/12/20 11/12/20 23:00 02:04 03:18 Temperature Pulse Rate 67 61 59 L Respiratory 22 19 18 Rate Blood Pressure 121/74 113/84 O2 Sat by Pulse 93 L 97 96 Oximetry 11/12/20 05:16 Temperature Pulse Rate 62 Respiratory 17 Rate Blood Pressure 124/68 O2 Sat by Pulse 98 Oximetry Medical Decision Making - Lab Data Result diagrams: 11/11/20 22:48 11/11/20 22:48 <Tee Rene - Last Filed: 11/12/20 00:38> - Lab Data Result diagrams: 11/11/20 22:48 11/11/20 22:48 <Vadim Nash - Last Filed: 11/23/20 20:49> - Medical Decision Making 65-year-old male presents to emergency room with a chief complaint of fever or shortness of breath. On physical examination, patient appears to be slightly short of breath. He is saturating in the low 90s on room air. Laboratory work suggestive of Covid. Elevated inflammatory markers. Negative troponin. Elevated d-dimer. Chest x-ray shows no acute findings. CT angiogram pending to rule out a pulmonary embolism. At this time, patient care side of to (Tee Rene) I saw this patient in conjunction with the physician dairy and food laboratory assistant. I performed independent history and physical exam. Agree with case management. (Vadim Nash) - Lab Data Lab Results 11/11/20 11/11/20 11/11/20 Range/Units 22:48 22:48 22:48 WBC 6.8 (3.8-10.6) k/uL RBC 4.79 (4.30-5.90) m/uL Hgb 14.7 (13.0-17.5) gm/dL Hct 44.4 (39.0-53.0) % MCV 92.6 (80.0-100.0) fL MCH 30.6 (25.0-35.0) pg MCHC 33.0 (31.0-37.0) g/dL RDW 13.2 (11.5-15.5) % Plt Count 152 (150-450) k/uL MPV 8.8 Neutrophils % 92 % Lymphocytes % 4 % Monocytes % 3 % Eosinophils % 1 % Basophils % 1 % Neutrophils # 6.3 (1.3-7.7) k/uL Lymphocytes # 0.2 L (1.0-4.8) k/uL Monocytes # 0.2 (0-1.0) k/uL Eosinophils # 0.0 (0-0.7) k/uL Basophils # 0.0 (0-0.2) k/uL PT 9.5 (9.0-12.0) sec INR 0.9 (<1.2) APTT 24.5 (22.0-30.0) sec D-Dimer 0.67 H (<0.60) mg/L FEU Sodium 135 L (137-145) mmol/L Potassium 4.1 (3.5-5.1) mmol/L Chloride 107 (98-107) mmol/L Carbon Dioxide 21 L (22-30) mmol/L Anion Gap 7 mmol/L BUN 20 (9-20) mg/dL Creatinine 0.92 (0.66-1.25) mg/dL Est GFR (CKD-EPI)AfAm >90 (>60 ml/min/1.73 sqM) Est GFR (CKD-EPI)NonAf 87 (>60 ml/min/1.73 sqM) Glucose 124 H (74-99) mg/dL Plasma Lactic Acid Ranjith (0.7-2.0) mmol/L Calcium 8.7 (8.4-10.2) mg/dL Magnesium 1.8 (1.6-2.3) mg/dL Ferritin 685.5 H (22.0-322.0) ng/mL Total Bilirubin 0.3 (0.2-1.3) mg/dL AST 70 H (17-59) U/L ALT 85 H (4-49) U/L Alkaline Phosphatase 52 (38-126) U/L Lactate Dehydrogenase 663 H (313-618) U/L C-Reactive Protein 5.7 H (<1.0) mg/dL Total Protein 6.1 L (6.3-8.2) g/dL Albumin 3.6 (3.5-5.0) g/dL Procalcitonin (0.02-0.09) ng/mL 11/11/20 11/11/20 Range/Units 22:48 22:48 WBC (3.8-10.6) k/uL RBC (4.30-5.90) m/uL Hgb (13.0-17.5) gm/dL Hct (39.0-53.0) % MCV (80.0-100.0) fL MCH (25.0-35.0) pg MCHC (31.0-37.0) g/dL RDW (11.5-15.5) % Plt Count (150-450) k/uL MPV Neutrophils % % Lymphocytes % % Monocytes % % Eosinophils % % Basophils % % Neutrophils # (1.3-7.7) k/uL Lymphocytes # (1.0-4.8) k/uL Monocytes # (0-1.0) k/uL Eosinophils # (0-0.7) k/uL Basophils # (0-0.2) k/uL PT (9.0-12.0) sec INR (<1.2) APTT (22.0-30.0) sec D-Dimer (<0.60) mg/L FEU Sodium (137-145) mmol/L Potassium (3.5-5.1) mmol/L Chloride (98-107) mmol/L Carbon Dioxide (22-30) mmol/L Anion Gap mmol/L BUN (9-20) mg/dL Creatinine (0.66-1.25) mg/dL Est GFR (CKD-EPI)AfAm (>60 ml/min/1.73 sqM) Est GFR (CKD-EPI)NonAf (>60 ml/min/1.73 sqM) Glucose (74-99) mg/dL Plasma Lactic Acid Ranjith 0.8 (0.7-2.0) mmol/L Calcium (8.4-10.2) mg/dL Magnesium (1.6-2.3) mg/dL Ferritin (22.0-322.0) ng/mL Total Bilirubin (0.2-1.3) mg/dL AST (17-59) U/L ALT (4-49) U/L Alkaline Phosphatase (38-126) U/L Lactate Dehydrogenase (313-618) U/L C-Reactive Protein (<1.0) mg/dL Total Protein (6.3-8.2) g/dL Albumin (3.5-5.0) g/dL Procalcitonin 0.38 H (0.02-0.09) ng/mL - EKG Data EKG Comments: Sinus rhythm Inverted T waves in lead 3 Ventricular rate 64, DE 180, QRS 82, QTC 400. (Tee Rene) Disposition <Tee Rene - Last Filed: 11/12/20 00:38> <Vadim Nash - Last Filed: 11/23/20 20:49> Clinical Impression: COVID-19 Disposition: ADMITTED IP TO THIS HOSP Condition: Stable
[2020-11-11 23:28] LABS: ALT 85 U/L (4-49); C Reactive Protein 5.7 mg/dL (<1.0); LDH 663 U/L (313-618)
[2020-11-11 23:54] LABS: AST 70 U/L (17-59); African American GFR (CKD) >90 (>60 ml/min/1.73 sqM); Albumin 3.6 g/dL (3.5-5.0); Alkaline Phosphatase 52 U/L (38-126); Anion Gap 7 mmol/L; Blood Urea Nitrogen 20 mg/dL (9-20); Calcium 8.7 mg/dL (8.4-10.2); Carbon Dioxide 21 mmol/L (22-30); Chloride 107 mmol/L (98-107); Glucose 124 mg/dL (74-99); Non-African American GFR(CKD) 87 (>60 ml/min/1.73 sqM); Potassium 4.1 mmol/L (3.5-5.1); Sodium 135 mmol/L (137-145); Total Bilirubin 0.3 mg/dL (0.2-1.3); Total Protein 6.1 g/dL (6.3-8.2)
[2020-11-11 23:55] LABS: Magnesium 1.8 mg/dL (1.6-2.3)
--- NOTE | 2020-11-12 01:34 | CT ---
EXAMINATION TYPE: CT chest angio for PE DATE OF EXAM: 11/12/2020 COMPARISON: 03/12/2019 HISTORY: SOB CT DLP: 458.1 mGycm Automated exposure control for dose reduction was used. CONTRAST: Performed with IV Contrast, patient injected with 100 mL of Isovue 370. Images obtained from the diaphragm to the thoracic inlet with IV contrast. There are 3-D post process ed images. The lungs are clear of consolidation. There is some mild patchy groundglass interstitial infiltrate i n the lungs. There is no pleural effusion. There is no pericardial effusion. Heart size is normal. Th ere is no evidence of a pulmonary mass. There are multiple hepatic cysts. I see no evidence of filling defect in the pulmonary arteries. Thoracic aorta is intact. There is no aneurysm or dissection. There is no mediastinal adenopathy. The re are no hilar masses. The ascending aorta measures 3.6 cm. The bony thorax is intact. There is no c ompression fracture. Sternum is intact. IMPRESSION: No evidence of pulmonary embolism. There is some patchy mild interstitial pulmonary infiltrates consi stent with some interstitial pneumonia that is a change compared to old exam. Stable multiple hepatic cysts. No suspicious pulmonary mass.
[2020-11-12] MEDS ORDERED: ACETAMINOPHEN TAB 325 MG TAB PO PRN (04:49)
[2020-11-12] MEDS ORDERED: MAG HYDROX/AL HYDROX/SIMETH 30 ML CUP PO PRN (04:49)
[2020-11-12] MEDS ORDERED: NALOXONE 0.4 MG/ML 1 ML VIAL IV PRN (04:49)
[2020-11-12] MEDS ORDERED: IBUPROFEN 400 MG TAB PO PRN (04:49)
[2020-11-12] MEDS ORDERED: dexAMETHasone 2 MG TAB PO STA (04:52)
[2020-11-12] MEDS ORDERED: ALBUTEROL HFA INHALER INHALATION PRN (04:53)
[2020-11-12] MEDS ORDERED: SODIUM CHLORIDE 0.9% 1,000 ML IV SCH (05:00)
[2020-11-12 05:17] VITALS: PULSE 62
[2020-11-12 08:16] VITALS: BP 118/74; RESP 18; TEMP 98.7
[2020-11-12] MEDS ORDERED: FAMOTIDINE 20 MG TAB PO SCH (09:00)
[2020-11-12] MEDS ORDERED: dexAMETHasone 2 MG TAB PO SCH (09:00)
[2020-11-12 10:36] LABS: Ferritin 685.5 ng/mL (22.0-322.0)
--- NOTE | 2020-11-12 18:27 | P.HPIM ---
History of Present Illness Patient is pleasant 65-year-old male came in with the shortness of breath also had fever at home. Patient had covid symptoms on October 2016 was diagnosed with cold but on November 04 patient did not receive vaccine for covid. Patient pr esently doesn't have any fevers patient had a CT angios the chest which did not show any pulmonary embolism but did show infiltrates consistent with Covid 19 although these infiltrates were similar to the previous imaging. Patient is on room air saturating in the 90s. Patient denied any nausea vomiting diarrhea. Patient was given Decadron. Feeling well. He wanted to go home. Patient does have elevated inflammatory markers with that we usually see in the Covid 19 infection. Patient has mildly elevated liver enzymes as well. REVIEW OF SYSTEMS: CONSTITUTIONAL: No fever, no malaise, no fatigue. HEENT: No recent visual problems or hearing problems. Denied any sore throat. CARDIOVASCULAR: No chest pain, orthopnea, PND, no palpitations, no syncope. PULMONARY: No shortness of breath, no cough, no hemoptysis. GASTROINTESTINAL: No diarrhea, no nausea, no vomiting, no abdominal pain. NEUROLOGICAL: No headaches, no weakness, no numbness. HEMATOLOGICAL: Denies any bleeding or petechiae. GENITOURINARY: Denies any burning micturition, frequency, or urgency. MUSCULOSKELETAL/RHEUMATOLOGICAL: Denies any joint pain, swelling, or any muscle pain. ENDOCRINE: Denies any polyuria or polydipsia. The rest of the 14-point review of systems is negative. PHYSICAL EXAMINATION: GENERAL: The patient is alert and oriented x3, not in any acute distress. Well developed, well nourished. HEENT: Pupils are round and equally reacting to light. EOMI. No scleral icterus. No conjunctival pallor. Normocephalic, atraumatic. No pharyngeal erythema. No thyromegaly. CARDIOVASCULAR: S1 and S2 present. No murmurs, rubs, or gallops. PULMONARY: Chest is clear to auscultation, no wheezing or crackles. ABDOMEN: Soft, nontender, nondistended, normoactive bowel sounds. No palpable organomegaly. MUSCULOSKELETAL: No joint swelling or deformity. EXTREMITIES: No cyanosis, clubbing, or pedal edema. NEUROLOGICAL: Gross neurological examination did not reveal any focal deficits. SKIN: No rashes. Assessment and plan -Covid 19 infection and shortness of breath patient is saturating well without oxygen patient will be discharged today on Decadron, patient was asked to monitor his oxygen saturations if they go low patient was asked to come back to the hospital. Patient will be discharged on vitamin D, zinc, vitamin C supplementation as well. -Elevated inflammatory markers secondary to systemic inflammatory response from Covid 19 -Elevated liver enzymes mild elevation secondary to Covid 19 infection -Patient will be discharged to follow with primary care physician -Ruled out pulmonary embolism Past Medical History Past Medical History: Cancer Additional Past Medical History / Comment(s): hx skin cancer 2003, DVT right leg 2016 (states he was on xarelto - last dose was Mar , states last ultrasound showed clot still there., 4 back surgeries with Chronic back pain., states having abd pain and rectal bleeding for 2 months. History of Any Multi-Drug Resistant Organisms: None Reported Past Surgical History: Appendectomy, Back Surgery, Cholecystectomy, Hernia R epair, Orthopedic Surgery, Tonsillectomy Additional Past Surgical History / Comment(s): SKIN CANCER, . RIGHT SHOULDER SURGERY x2, BILATERAL KNEE ARTHROSCOPY. Past Anesthesia/Blood Transfusion Reactions: No Reported Reaction Past Psychological History: No Psychological Hx Reported Smoking Status: Never smoker Past Alcohol Use History: None Reported Past Drug Use History: None Reported - Past Family History Father Family Medical History: Cancer Additional Family Medical History / Comment(s): PROSTATE CANCER Mother Family Medical History: Cancer Additional Family Medical History / Comment(s): OVARIAN CANCER Sister(s) Family Medical History: Cancer, Deep Vein Thrombosis (DVT) Additional Family Medical History / Comment(s): OVARIAN CANCER, BREAST CANCER Brother(s) Family Medical History: Cancer, Deep Vein Thrombosis (DVT), Pulmonary Embolus Additional Family Medical History / Comment(s): LEUKEMIA Medications and Allergies Home Medications Medication Instructions Recorded Confirmed Type Ibuprofen [Motrin Ib] 800 mg PO Q6H PRN 06/29/18 11/11/20 History Acetaminophen Tab [Tylenol] 500 mg PO Q6H PRN 11/11/20 11/11/20 History Albuterol Inhaler [Ventolin Hfa 2 puff INHALATION RT-Q4H PRN 11/11/20 11/11/20 History Inhaler] Famotidine [Pepcid AC] 20 mg PO DAILY 11/11/20 11/11/20 History Ascorbic Acid [Vitamin C] 500 mg PO DAILY #20 tab 11/12/20 Rx Cholecalciferol [Vitamin D3 (25 25 mcg PO DAILY #30 tab 11/12/20 Rx Mcg = 1000 Iu)] Zinc Sulfate 220 mg PO DAILY #20 capsule 11/12/20 Rx dexAMETHasone ORAL [Hexadrol] 4 mg PO DAILY #10 tab 11/12/20 Rx Allergies Allergy/AdvReac Type Severity Reaction Status Date / Time No Known Allergies Allergy Verified 11/11/20 22:29 Physical Exam Vitals: Vital Signs Temp Pulse Resp BP BP Pulse Ox 11/12/20 08:15 98.7 F 18 118/74 96 11/12/20 08:00 18 11/12/20 05:16 62 17 124/68 98 11/12/20 03:18 59 L 18 113/84 96 11/12/20 02:04 61 19 97 11/11/20 23:00 67 22 121/74 93 L 11/11/20 22:41 22 11/11/20 22:30 68 20 143/101 92 L 11/11/20 21:41 99.5 F 81 18 135/87 94 L Intake and Output 11/12/20 11/12/20 11/12/20 06:59 14:59 22:59 Other: Weight 103.873 kg Results CBC & Chem 7: 11/11/20 22:48 11/11/20 22:48 Labs: Abnormal Lab Results - Last 24 Hours (Table) 11/11/20 11/11/20 11/11/20 Range/Units 22:48 22:48 22:48 Lymphocytes # 0.2 L (1.0-4.8) k/uL D-Dimer 0.67 H (<0.60) mg/L FEU Sodium 135 L (137-145) mmol/L Carbon Dioxide 21 L (22-30) mmol/L Glucose 124 H (74-99) mg/dL Ferritin 685.5 H (22.0-322.0) ng/mL AST 70 H (17-59) U/L ALT 85 H (4-49) U/L Lactate Dehydrogenase 663 H (313-618) U/L C-Reactive Protein 5.7 H (<1.0) mg/dL Total Protein 6.1 L (6.3-8.2) g/dL Procalcitonin (0.02-0.09) ng/mL 11/11/20 Range/Units 22:48 Lymphocytes # (1.0-4.8) k/uL D-Dimer (<0.60) mg/L FEU Sodium (137-145) mmol/L Carbon Dioxide (22-30) mmol/L Glucose (74-99) mg/dL Ferritin (22.0-322.0) ng/mL AST (17-59) U/L ALT (4-49) U/L Lactate Dehydrogenase (313-618) U/L C-Reactive Protein (<1.0) mg/dL Total Protein (6.3-8.2) g/dL Procalcitonin 0.38 H (0.02-0.09) ng/mL Thrombosis Risk Factor Assmnt - Choose All That Apply Each Risk Factor Represents 2 Points: Age 61-74 years Each Risk Factor Represents 3 Points: History of DVT/PE Thrombosis Risk Factor Assessment Total Risk Factor Score: 5 Thrombosis Risk Factor Assessment Level: High Risk
--- NOTE | 2020-11-12 18:27 | P.DS ---
Providers Date of admission: 11/12/20 04:49 Attending physician: Salma Cartwright Primary care physician: Irma Otto [facility] Hospital Course: refer to my history of present illness for further details Patient Condition at Discharge: Stable Plan - Discharge Summary New Discharge Prescriptions: New dexAMETHasone ORAL [Hexadrol] 4 mg PO DAILY #10 tab Cholecalciferol [Vitamin D3 (25 Mcg = 1000 Iu)] 25 mcg PO DAILY #30 tab Zinc Sulfate 220 mg PO DAILY #20 capsule Ascorbic Acid [Vitamin C] 500 mg PO DAILY #20 tab Continue Ibuprofen [Motrin Ib] 800 mg PO Q6H PRN PRN Reason: Pain Famotidine [Pepcid AC] 20 mg PO DAILY Albuterol Inhaler [Ventolin Hfa Inhaler] 2 puff INHALATION RT-Q4H PRN PRN Reason: Shortness Of Breath Acetaminophen Tab [Tylenol] 500 mg PO Q6H PRN PRN Reason: Pain Or Fever > 100.5 Discharge Medication List Ibuprofen [Motrin Ib] 800 mg PO Q6H PRN 06/29/18 [History] Acetaminophen Tab [Tylenol] 500 mg PO Q6H PRN 11/11/20 [History] Albuterol Inhaler [Ventolin Hfa Inhaler] 2 puff INHALATION RT-Q4H PRN 11/11/20 [History] Famotidine [Pepcid AC] 20 mg PO DAILY 11/11/20 [History] Ascorbic Acid [Vitamin C] 500 mg PO DAILY #20 tab 11/12/20 [Rx] Cholecalciferol [Vitamin D3 (25 Mcg = 1000 Iu)] 25 mcg PO DAILY #30 tab 11/12/20 [Rx] Zinc Sulfate 220 mg PO DAILY #20 capsule 11/12/20 [Rx] dexAMETHasone ORAL [Hexadrol] 4 mg PO DAILY #10 tab 11/12/20 [Rx] Follow up Appointment(s)/Referral(s): Irma Otto III, MD [Primary Care Provider] - 3 Days Discharge Disposition: HOME SELF-CARE
== END 2020-11-12 15:15 | disposition home or self-care (01) | DRG 179 ==
LOC: EC 21:35 → 4SSUR 11-12 04:49
PROVIDERS: ADMIT Hospitalist; ATTEND Hospitalist
DX: U07.1 COVID-19 (principal); G89.29 Other chronic pain; R74.8 Abnormal levels of other serum enzymes; M54.9 Dorsalgia, unspecified; Z79.899 Other long term (current) drug therapy; Z90.49 Acquired absence of other specified parts of digestive tract; Z87.19 Personal history of other diseases of the digestive system; Z85.828 Personal history of other malignant neoplasm of skin; Z86.718 Personal history of other venous thrombosis and embolism; Z87.39 Personal history of other diseases of the musculoskeletal system and connective tissue; Z90.89 Acquired absence of other organs; Z98.890 Other specified postprocedural states; Z80.42 Family history of malignant neoplasm of prostate; Z80.3 Family history of malignant neoplasm of breast; Z80.41 Family history of malignant neoplasm of ovary; Z83.2 Family history of diseases of the blood and blood-forming organs and certain disorders involving the immune mechanism; Z80.6 Family history of leukemia
CPT/HCPCS: 36415; 71045; 71275; 80053; 82728; 83605; 83615; 83735; 84145; 85025; 85379; 85610; 85730; 86140; 87040; 93005; 99285

== ENCOUNTER → 2020-12-21 | Outpatient (CLI) | payer MEDICARE ==
--- NOTE | 2020-12-21 14:56 | CT ---
EXAMINATION TYPE: CT abdomen pelvis w con DATE OF EXAM: 12/21/2020 COMPARISON: Infection, correlate clinically. And pelvis July 23, 2017. CTA chest November 12, 2020 HISTORY: Left lower quadrant pain. CT DLP: 1433.2 mGycm, Automated Exposure Control for Dose Reduction was Utilized. CONTRAST: CT scan of the abdomen and pelvis is performed with oral and with IV Contrast, patient injected with 100 mL of Isovue M300. FINDINGS: LUNG BASES: New peripheral mild to moderate linear and lobular septal thickening and fibrosis with mi ld peripheral reticulation corresponds to areas of prior groundglass opacity. Findings thought to ref lect lower lung fibrotic changes related to recent covid-19 LIVER/GB: Scattered benign thin-walled cysts of varying sizes and shapes redemonstrated throughout th e liver. Cholecystectomy clips redemonstrated. PANCREAS: No significant abnormality is seen. SPLEEN: No significant abnormality is seen. ADRENALS: No significant abnormality is seen. KIDNEYS: No significant abnormality is seen. BOWEL: Oral contrast reaches level of left colon. No suspicious small or large bowel dilatation. PROSTATE/SEMINAL VESICLES: No gross abnormality seen. LYMPH NODES: No greater than 1cm abdominal or pelvic lymph nodes are appreciated. OSSEOUS STRUCTURES: Right L3-L5 posterior surgical changes with artificial disc material is redemonst rated. There is hemangioma involving right L2 vertebra redemonstrated. Underlying levoconvex scoliosi s centered at L2-L3 level redemonstrated. Mild to moderate narrowing and spurring of both hip joints redemonstrated. OTHER: Small sized fat-containing umbilical hernia redemonstrated. IMPRESSION: No significant acute finding is seen to account for patient's clinical symptoms of left lower quadrant pain. Mild to moderate basilar parenchymal fibrotic changes related to recent covid-19 infection are thought present. Correlate clinically.
== END | disposition home or self-care (01) ==
LOC: RADCTMAIN 12:47
PROVIDERS: ATTEND Family Medicine
DX: R10.32 Left lower quadrant pain (principal)
CPT/HCPCS: 82565; 84520; 74177; 36415; Q9967 ×2

== ENCOUNTER → 2021-09-15 | Outpatient (CLI) | payer MEDICARE ==
[2021-09-15 14:12] LABS: HCT 44.1 % (39.6-50.0); HGB 14.3 g/dL (13.0-17.0); MCH 29.5 pg (27.0-32.0); MCHC 32.4 g/dL (32.0-37.0); MCV 90.9 fL (80.0-97.0); NRBC Per 100 WBC 0 /100 WBCS (0.0-0.0); Platelet Count 180 X 10*3/uL (140-440); RBC 4.85 X 10*6/uL (4.40-5.60); RDW 13.2 % (11.5-14.5); WBC 5.81 X 10*3/uL (4.50-10.00)
[2021-09-15 14:41] LABS: ALT 34 U/L (10-49); AST 42 U/L (14-35); African American GFR (CKD) 71.7 (60.0-200.0); Albumin 4.4 g/dL (3.8-4.9); Albumin/Globulin Ratio 2.23 (1.60-3.17); Alkaline Phosphatase 43 U/L (41-126); BUN/Creat Ratio 16.15 Ratio (12.00-20.00); Blood Urea Nitrogen 19.7 mg/dL (9.0-27.0); Calcium 9.4 mg/dL (8.7-10.3); Chloride 107 mmol/L (96-109); Chol/HDL Ratio 6.04 Ratio; Glucose 87 mg/dL (70-110); LDL Cholesterol,Calculated 127.8 mg/dL (0.0-131.0); Non-African American GFR(CKD) 61.8 (60.0-200.0); Potassium 4.8 mmol/L (3.5-5.5); Sodium 142 mmol/L (135-145); Total Protein 6.3 g/dL (6.2-8.2)
== END | disposition home or self-care (01) ==
LOC: LABWHC1 07:19
DX: R10.31 Right lower quadrant pain (principal)
CPT/HCPCS: 36415; 80053; 80061; 83036; 85027

== ENCOUNTER → 2022-10-31 | Outpatient (CLI) | payer MEDICARE ==
[2022-10-31 10:58] LABS: Basophils # (A) 0.05 X 10*3/uL (0.00-0.10); Basophils % (A) 1.1 %; Eosinophils # (A) 0.08 X 10*3/uL (0.04-0.35); Eosinophils % (A) 1.7 %; HCT 40.9 % (39.6-50.0); HGB 13.4 d/dL (13.0-17.0); Lymphocytes # (A) 1.16 X 10*3/uL (0.90-5.00); Lymphocytes % (A) 24.7 %; MCH 29.6 pg (27.0-32.0); MCHC 32.8 d/dL (32.0-37.0); MCV 90.5 FL (80.0-97.0); Monocytes # (A) 0.43 X 10*3/uL (0.20-1.00); Monocytes % (A) 9.1 %; NRBC Per 100 WBC 0 X 10*3/uL (0.00-0.01); Neutrophils # (A) 2.97 X 10*3/uL (1.80-7.70); Neutrophils % (A) 63.2 %; Platelet Count 153 X 10*3/uL (140-440); RBC 4.52 X 10*6/uL (4.40-5.60)
[2022-10-31 11:17] LABS: ALT 24 U/L (10-49); AST 36 U/L (14-35)
== END | disposition home or self-care (01) ==
LOC: LABWHC1 07:20
PROVIDERS: ATTEND Psychiatry & Neurology Neurology
DX: Z01.812 Encounter for preprocedural laboratory examination (principal); B35.1 Tinea unguium; R00.1 Bradycardia, unspecified; R94.31 Abnormal electrocardiogram [ECG] [EKG]
CPT/HCPCS: 36415; 84450; 84460; 85025; 93005

== ENCOUNTER → 2023-02-18 | Outpatient (CLI) | payer MEDICARE ==
[2023-02-18 16:53] LABS: Basophils # (A) 0.05 X 10*3/uL (0.00-0.10); Basophils % (A) 1.2 %; Eosinophils # (A) 0.13 X 10*3/uL (0.04-0.35); Eosinophils % (A) 3.2 %; HGB 12.8 g/dL (13.0-17.0); Lymphocytes # (A) 1.09 X 10*3/uL (0.90-5.00); MCH 29.3 pg (27.0-32.0); MCV 91.5 FL (80.0-97.0); Mean Platelet Volume 11.4 FL (9.5-12.2); Monocytes # (A) 0.39 X 10*3/uL (0.20-1.00); Monocytes % (A) 9.7 %; NRBC Per 100 WBC 0 X 10*3/uL (0.00-0.01); Neutrophils # (A) 2.36 X 10*3/uL (1.80-7.70); Neutrophils % (A) 58.4 %; Platelet Count 153 X 10*3/uL (140-440); RBC 4.37 X 10*6/uL (4.40-5.60); RDW 13.2 % (11.5-14.5); WBC 4.04 X 10*3/uL (4.50-10.00)
[2023-02-18 18:31] LABS: ALT 30 U/L (10-49); AST 41 U/L (14-35)
== END | disposition home or self-care (01) ==
LOC: LABWHC1 07:47
PROVIDERS: ATTEND Dermatology MOHS-Micrographic Surgery
DX: B35.1 Tinea unguium (principal)
CPT/HCPCS: 36415; 84450; 84460; 85025

== ENCOUNTER → 2023-05-01 | Outpatient (CLI) | payer MEDICARE ==
[2023-05-01 11:29] LABS: African American GFR (CKD) >90 (>60 ml/min/1.73 sqM); Blood Urea Nitrogen 20 mg/dL (9-20); Non-African American GFR(CKD) 83 (>60 ml/min/1.73 sqM)
--- NOTE | 2023-05-03 19:43 | CT ---
EXAMINATION TYPE: CT abdomen pelvis w con DATE OF EXAM: 05/01/2023 COMPARISON: 12/21/2020 INDICATION: Right lower quadrant pain DLP: 1922.4 mGycm, Automated exposure control for dose reduction was used. CONTRAST: 100 mL of Isovue 300. Study performed with Oral Contrast TECHNIQUE: Axial images were obtained from above the diaphragm to the pubic rami in the axial plane a t 5 mm thick sections. Reconstructed images are reviewed on the computer in the coronal plane. FINDINGS: Limited CT sections are obtained the lung bases. There is a subtle density in the posterior lateral right lung base could be atelectasis. Series 4 image 2. Lung bases are otherwise clear. . CT ABDOMEN: Liver: There are scattered hepatic cysts. Spleen: Normal Pancreas: Normal Adrenal glands: The adrenal glands are normal. Gallbladder: Surgically absent. Kidneys: No masses are evident. No hydronephrosis is present. No cysts are present. Delayed images were obtained through the kidneys, which remain unremarkable. Aorta: Vascular calcification is within the aorta. Inferior vena cava: Normal. CT PELVIS: Loops of bowel within the abdomen and pelvis are normal. There are loops of bowel which are incom pletely distended or lack oral contrast limiting their evaluation. Appendix: The appendix is not identified. No suspicious dilated tubular structure or inflammatory pedro pablo nges to suggest acute appendicitis. Clinical management of any suspected appendicitis is recommended Urinary bladder: Normal. Genitourinary structures: Prostate appears unremarkable. Osseous structures: No suspicious lytic or sclerotic lesions. Pedicles are within the lower lumbar sp ine. IMPRESSION: 1. No suspicious acute abnormality to account for right lower quadrant pain
== END | disposition home or self-care (01) ==
LOC: RADCTMAIN 09:58
PROVIDERS: ATTEND Internal Medicine
DX: R10.31 Right lower quadrant pain (principal); Z90.49 Acquired absence of other specified parts of digestive tract
CPT/HCPCS: 82565; 84520; 74177; 36415; Q9967

== ENCOUNTER 2023-07-10 09:26 | Day surgery (SDC) | payer MEDICARE ==
[2023-07-08 14:14] VITALS: BMI 29.5
[~2023-07-10 09:26] MED LIST changes: -COSYNTROPIN 0.25 MG VIAL IVP ONE; +LIDOCAINE 1% (10MG/ML) FOR IV START INTRADERMA PRN; -SODIUM CHLORIDE 0.9% 500 ML 500 ML in EMPTY BAG 1 BAG IV PRN
[2023-07-10] MEDS: LACTATED RINGERS 1,000 ML IV SCH (10:19)
[2023-07-10 10:36] VITALS: TEMP 97.5
[2023-07-10] MEDS ORDERED: PROPOFOL 10 MG/ML 20 ML VIAL IV ONE (11:16)
--- NOTE | 2023-07-10 11:31 | P.PCN ---
Date of Procedure: 07/10/23 Procedure(s) Performed: BRIEF HISTORY: Patient is a 67-year-old pleasant white male scheduled for an elective colonoscopy as a part of evaluation of intermittent rectal bleeding for the last 1 year duration. PROCEDURE PERFORMED: Colonoscopy. PREOPERATIVE DIAGNOSIS: Intermittent rectal bleeding of 1 year duration. IV sedation per Anesthesia. PROCEDURE: After informed consent was obtained, the patient, was brought into the endoscopy unit. IV sedation was administered by Anesthesia under continuous monitoring. Digital rectal examination was normal.t skin tag identified There was an inflamed skin tag identified.Initially the Olympus CF-160 flexible video colonoscope was then inserted in the rectum, gradually advanced into the cecum without any difficulty. Careful examination was performed as the scope was gradually being withdrawn. Ileocecal valve and the appendiceal orifice were visualized and appeared normal. Prep was excellent. Mucosa of the cecum, ascending colon, transverse colon, descending colon, sigmoid colon, and rectum appeared normal. Retroflexion was performed in the rectum and small internal hemorrhoidss were seen. The patient tolerated the procedure well. IMPRESSION: Normal-appearing colon from rectum to cecumwith no evidence of colorectal neoplasia Inflamed external skin tag Grade 2 internal hemorrhoids . RECOMMENDATIONS: Findings of this examination were discussed with the patient as well as his family.. He was advised to be a high-fiber diet and take fiber supplements a regular basis. Recommend repeat screening colonoscopy in 10 years.
[2023-07-10 11:56] VITALS: RESP 16
[2023-07-10 12:35] VITALS: BP 143/83; PULSE 59
== END 2023-07-10 12:40 | disposition home or self-care (01) ==
LOC: ORWHC2ENDO 09:26
PROVIDERS: ATTEND Internal Medicine Gastroenterology
DX: K62.5 Hemorrhage of anus and rectum (principal); K21.9 Gastro-esophageal reflux disease without esophagitis; Z90.49 Acquired absence of other specified parts of digestive tract; Z98.890 Other specified postprocedural states; Z88.5 Allergy status to narcotic agent; Z79.899 Other long term (current) drug therapy
CPT/HCPCS: 45378; J2704